=== PATIENT | male | born 1940 | race Caucasian/White ===

== ENCOUNTER 2023-01-26 17:46 | Observation (INO) | payer OTHER, SELFPAY ==
[2023-01-26] VITALS (15 sets, daily range): BP systolic 136–189; BP diastolic 62–83; PULSE 60–66; RESP 14–26; TEMP 36.7; O2SAT 92–96; BMI 27.6
--- NOTE | 2023-01-26 17:59 | DI.RAD.S_ITS ---
PROCEDURE: XR CHEST 1V INDICATIONS: Shortness of breath TECHNIQUE: One view of the chest was acquired. COMPARISON: None. FINDINGS: Surgical changes and devices: Left chest wall pacemaker with intravenous leads. Lungs and pleura: Lungs are clear. No pleural effusions or pneumothorax. Mediastinum: Mediastinal contours appear normal. Heart size is normal. Bones and chest wall: No suspicious bony lesions. Overlying soft tissues appear unremarkable. IMPRESSION: Portable chest within normal limits for age. Dictated by: Gwyn Price M.D. on 01/26/2023 at 18:43 Approved by: Gwyn Price M.D. on 01/26/2023 at 18:44
[2023-01-26 18:24] LABS: Add Manual Diff / Slide Review NO; Basophils Absolute Auto 100 /uL (0-100); Basophils Percent Auto 1.1 % (0-2); Eosinophils Absolute Auto 100 /uL (0-450); Eosinophils Percent Auto 2.1 % (2-4); Hematocrit 42.9 % (41-53); Hemoglobin 14.8 g/dL (13.5-17.5); Lymphocytes Absolute Auto 800 /uL (1100-4500); Lymphocytes Percent Auto 13.5 % (25-40); Mean Corpuscular HGB Conc 34.4 % (30-36); Mean Corpuscular Hemoglobin 30.9 PG (26-34); Mean Corpuscular Volume 89.8 fL (80-100); Monocytes Absolute Auto 500 /uL (0-900); Monocytes Percent Auto 8.1 % (3-14); Neutrophils Absolute Auto 4300 /uL (1500-7000); Neutrophils Percent Auto 75.2 % (50-75); Platelet Count 155 X10^3/uL (150-400); Red Blood Cell Count 4.78 X10^6/uL (4.5-5.9); Red Cell Distribution Width 13.7 % (11.6-14.8); White Blood Cell Count 5.8 X10^3/uL (4.5-11.0)
--- NOTE | 2023-01-26 18:27 | ED.SOB ---
HPI - SOB/Dyspnea General Chief Complaint: Shortness of Breath/Dyspnea Stated Complaint: SOB, Dyspnea Time Seen by Provider: 01/26/23 18:17 Source: patient and family Mode of arrival: Ambulatory History of Present Illness HPI Narrative: Patient is a 82-year-old male history of atrial fibrillation with pacemaker not on anticoagulation but does take aspirin presenting today with increasing shortness of breath over last 3 days. He reports that 5 days ago they put their dogs down but he is noticed significant increase shortness of breath with exertion. He is no problems sleeping at night. He feels like his legs might be a little bit more swollen than normal. No history of congestive heart failure. He is not having any chest pain. He reports more shortness of breath when walking up hills. No abdominal pain nausea or vomiting. He has a dry nonproductive cough. Not fever or chills. Related Data Allergies Allergy/AdvReac Type Severity Reaction Status Date / Time vaccine adjuvant system, Allergy Swelling Verified 01/26/23 17:52 AS01B liposomal of [From Shingrix (PF)] extremity varicella-zoster virus Allergy Swelling Verified 01/26/23 17:52 glycoprotein E, recombinant of [From Shingrix (PF)] extremity Sulfa (Sulfonamide AdvReac Hives Verified 01/26/23 17:52 Antibiotics) Review of Systems Review of Systems ROS Unobtainable: All systems reviewed & are unremarkable except as noted in HPI and below Patient History Social History household members: spouse Smoking Status: Former smoker alcohol intake: current Smoking Status: Never smoker alcohol intake frequency: a few times a month Substance Use Type: does not use Exam Initial Vital Signs Initial Vital Signs: Vital Signs Temperature 98.0 F 01/26/23 17:52 Pulse Rate 60 01/26/23 17:52 Respiratory Rate 16 01/26/23 17:52 Blood Pressure 182/80 H 01/26/23 17:52 Pulse Oximetry 96 01/26/23 17:52 Oxygen Delivery Method Room Air 01/26/23 17:52 GENERAL: Alert pleasant well-appearing 82-year-old male and in no acute distress. HEENT: Head atraumatic,EOMI, pupils reactive, face symmetric, moist mucous membranes CARDIOVASCULAR: Regular rate and rhythm without murmurs, rubs or gallops. RESPIRATORY: Breath sounds equal bilaterally, no wheezes rales or rhonchi. No conversational dyspnea no rales ABDOMEN: Soft, nontender. Normoactive bowel sounds all 4 quadrants. No guarding or rebound. EXTREMITIES: Normal range of motion, no clubbing. +1 pitting edema bilaterally reports left leg has chronically been more swollen than the right after an accident. Neurovascularly intact NEUROLOGICAL: Alert and oriented x4.Normal gait and speech. SKIN: Warm, dry, no laceration, no petechiae, no rashes or lesions. Course Orders Ordered: ED Orders 01/26/23 17:59 XR chest 1V Stat EKG-12 Lead Stat Measure peak expiratory flow ONCE RT Consult Eval and Treat NOW 01/26/23 18:22 Complete Blood Count AUTO DIFF Stat Comprehensive Metabolic Panel Stat D Dimer Stat Lactate (Lactic Acid) Stat NT-proBNP (BNP-Adult 18+) Stat Prothrombin Time INR Stat Troponin I Stat 01/26/23 20:10 CT angio chest PE protocol Stat Acetaminophen (Acetaminophen 325 Mg Tablet) 650 mg PO Q6H [facility] Last Admin: 01/26/23 23:42 Dose: Not Given Documented By: HNCristofer Hydrocodone Bitart/Acetaminophen (Hydrocodone/Acet 5/325 Tablet) 1 tab PO Q4H PRN PRN Reason: Pain, Moderate (4-6) Al Hydrox/Mg Hydrox/Simethicone (Mag Hydrox/Alum/Simeth 30 Ml Udc) 30 ml PO Q6HR PRN PRN Reason: Dyspepsia Apixaban (Apixaban 5 Mg Tablet) 10 mg PO BID [facility] Stop: 02/02/23 21:01 Calcium Carbonate (Calcium Carbonate 500 Mg Tab) 1,000 mg PO Q4HR PRN PRN Reason: Dyspepsia Morphine Sulfate (Morphine 4 Mg/Ml Inj) 3 mg IV Q4HR PRN PRN Reason: Pain, Severe (7-10) Naloxone HCl (Naloxone 0.4 Mg/Ml Vial) 0.2 mg IV Q2MIN PRN PRN Reason: Opiate Reversal Ondansetron HCl (Ondansetron 4 Mg/2 Ml Inj) 4 mg IV Q6HR [facility] Last Admin: 01/26/23 23:43 Dose: Not Given Documented By: HNG Sennosides (Sennosides 8.6 Mg Tablet) 17.2 mg PO BEDTIME YOLANDA Discontinued Medications Apixaban (Apixaban 5 Mg Tablet) 10 mg PO NOW ONE Stop: 01/26/23 21:06 Last Admin: 01/26/23 21:16 Dose: 10 mg Documented By: HNG Vital Signs Vital signs: Vital Signs - 8 hr 01/26/23 17:52 01/26/23 18:04 01/26/23 18:04 Temperature 98.0 F Pulse Rate 60 60 Respiratory Rate 16 Blood Pressure 182/80 H 189/83 H Pulse Oximetry 96 95 Oxygen Delivery Method Room Air 01/26/23 18:30 01/26/23 18:31 01/26/23 18:31 Temperature Pulse Rate 60 60 Respiratory Rate 26 H Blood Pressure 147/66 H Pulse Oximetry 94 94 Oxygen Delivery Method Room Air 01/26/23 19:00 01/26/23 19:00 01/26/23 19:30 Temperature Pulse Rate 60 60 Respiratory Rate 19 24 Blood Pressure 155/67 H Pulse Oximetry 93 92 Oxygen Delivery Method Room Air 01/26/23 19:31 01/26/23 19:31 01/26/23 20:00 Temperature Pulse Rate 60 60 Respiratory Rate 14 Blood Pressure 146/66 H Pulse Oximetry 93 94 Oxygen Delivery Method 01/26/23 20:00 01/26/23 20:33 01/26/23 20:46 Temperature Pulse Rate 66 60 Respiratory Rate Blood Pressure 137/68 Pulse Oximetry 93 93 Oxygen Delivery Method Room Air Room Air 01/26/23 20:46 01/26/23 21:00 01/26/23 21:00 Temperature Pulse Rate 60 Respiratory Rate Blood Pressure 138/64 136/62 Pulse Oximetry 93 Oxygen Delivery Method Room Air MDM - SOB/Dyspnea Lab Data 01/26/23 18:22 01/26/23 18:22 Labs: Lab Results 01/26/23 Range/Units 18:22 WBC 5.8 (4.5-11.0) X10^3/uL RBC 4.78 (4.5-5.9) X10^6/uL Hgb 14.8 (13.5-17.5) g/dL Hct 42.9 (41-53) % MCV 89.8 (80-100) fL MCH 30.9 (26-34) PG MCHC 34.4 (30-36) % RDW 13.7 (11.6-14.8) % Plt Count 155 (150-400) X10^3/uL Neut % (Auto) 75.2 H (50-75) % Lymph % (Auto) 13.5 L (25-40) % Sebastian % (Auto) 8.1 (3-14) % Eos % (Auto) 2.1 (2-4) % Baso % (Auto) 1.1 (0-2) % Neut # (Auto) 4300 (7075-9218) /uL Lymph # (Auto) 800 L (1894-4793) /uL Sebastian # (Auto) 500 (0-900) /uL Eos # (Auto) 100 (0-450) /uL Baso # (Auto) 100 (0-100) /uL PT 12.9 H (10.1-12.7) SECONDS INR 1.1 (0.9-1.3) D-Dimer 12508 H (<500) ng/ml Sodium 139 (137-145) mmol/L Potassium 4.5 (3.4-5.1) mmol/L Chloride 104 (98-107) mmol/L Carbon Dioxide 27 (22-32) mmol/L BUN 25 H (9-20) mg/dL Creatinine 1.48 H (0.66-1.25) mg/dL Estimated GFR 48 L (>60) mL/min BUN/Creatinine Ratio 16.9 (6-22) Glucose 90 (80-110) mg/dL Lactate 1.1 (0.7-2.1) mmol/L Calcium 9.7 (8.4-10.2) mg/dL Total Bilirubin 0.7 (0.2-1.3) mg/dL AST 39 (17-59) IU/L ALT 26 (<50) IU/L Alkaline Phosphatase 63 (38-126) U/L Troponin I 0.020 (0.01-0.034) ng/mL NT-Pro-B Natriuret Pep 186 (<450) pg/mL Total Protein 7.4 (6.3-8.2) g/dL Albumin 4.1 (3.5-5.0) g/dL Globulin 3.3 (1.7-4.1) g/dL Albumin/Globulin Ratio 1.2 (1.0-2.8) Imaging Data Chest x-ray: Radiologist's Impression: PROCEDURE: XR CHEST 1V INDICATIONS: Shortness of breath TECHNIQUE: One view of the chest was acquired. COMPARISON: None. FINDINGS: Surgical changes and devices: Left chest wall pacemaker with intravenous leads. Lungs and pleura: Lungs are clear. No pleural effusions or pneumothorax. Mediastinum: Mediastinal contours appear normal. Heart size is normal. Bones and chest wall: No suspicious bony lesions. Overlying soft tissues appear unremarkable. IMPRESSION: Portable chest within normal limits for age. CT scan - chest: Radiologist's Impression: PROCEDURE: CT ANGIO CHEST PE PROTOCOL INDICATIONS: dimer very high and short of breath TECHNIQUE: After the administration of intravenous contrast, 2 mm thick sections acquired from the pulmonary apices to the posterior costophrenic angles. 3-dimensional maximum intensity projection (MIP) coronal and sagittal reformats were then acquired through the thorax. For radiation dose reduction, the following was used: automated exposure control, adjustment of mA and/or kV according to patient size. COMPARISON: [facility], , XR CHEST 1V, 01/26/2023, 18:08. FINDINGS: Image quality: Excellent. Pulmonary arteries: Pulmonary arteries are prominent in size. Intraluminal filling defects are noted within segmental and subsegmental branches of bilateral upper and lower lobe as well as right middle lobe branches of pulmonary arteries. Lungs and pleura: Bibasilar scarring/atelectasis is seen. No acute airspace opacity. No pleural effusions or pneumothorax. Central and peripheral airways are patent. Mediastinum: Heart size is enlarged, without pericardial effusion. Prominent size of right atrium and right ventricle is seen with leftward bowing of the interventricular septum suggestive of right heart strain. No mediastinal or hilar adenopathy. Thoracic aorta is normal in caliber and enhancement. Esophagus is normal in caliber, with a small hiatal hernia. Bones and chest wall: No suspicious bony lesions. Ribs and thoracic spine appear intact throughout. Thyroid gland is within normal limits. No axillary or supraclavicular adenopathy. Abdomen: Visualized upper abdominal solid organs appear normal in the early arterial phase of enhancement. Well-circumscribed hypodensities are noted scattered in visualized hepatic lobe measures up to 3.3 x 4.5 cm in size and 6 Hounsfield unit in density likely represent hepatic cysts. IMPRESSION: 1. Extensive bilateral pulmonary emboli as described above. 2. Suggestion of right heart strain. Prominent size of main pulmonary artery which can be seen associated with pulmonary vascular hypertension. 3. No mediastinal or hilar lymphadenopathy. Small hiatal hernia. 4. Bibasilar scarring/atelectasis. No pleural effusion or pneumothorax. Airway is patent. Findings were reported to ER clinician at the time of the dictation. Dictated by: Priyank Welch M.D. on 01/26/2023 at 20:47 Approved by: Priyank Welch M.D. on 01/26/2023 at 20:57 ECG Data Interpretation: Paced rhythm rate 60 IL interval 292 QRS 104 QTC 432 MDM Narrative Medical decision making narrative: Patient 82-year-old male very well appearing presents today with increasing shortness of breath over the last 3 days. He does report that he had some shortness of breath 4 days ago drove in a car the following day and breathing got worse after that. He is not hypoxic or hypotensive. He is not tachycardic has a pacemaker. X-ray is negative he does not have any sort of conversational dyspnea no evidence of infection or congestive heart failure BNP is also detectable. D-dimer was added and is greater than 10,000. CT angio confirms bilateral extensive pulmonary emboli with right heart strain. Personally have reviewed the CT and easily see the clot burden. Without hypotension or hypoxia does not qualify for thrombolytics or echoes. He overall appears well. However due to right heart strain and extensive clot burden I think reasonable to put in observation. He is given a 1st dose of Eliquis here in the ED. Discussed case with Dr. Be who agrees with observational status. Unclear cause of autism. He seems like a very active gentleman he is definitely not sedentary. He does have atrial fibrillation he is got a pacemaker he is only taking aspirin. He did not like or want to take anticoagulation because he bruises very easily. Discharge Plan Departure Patient Disposition: Admitted as Observation Clinical Impression: Pulmonary embolism with acute cor pulmonale Qualifiers: Pulmonary embolism type: unspecified Chronicity: acute Qualified Code(s): I26.09 - Other pulmonary embolism with acute cor pulmonale Admit Date/Time: 01/26/23 21:56 Admit Provider: Luke White
[2023-01-26 18:36] LABS: INR 1.1 (0.9-1.3); Prothrombin Time 12.9 SECONDS (10.1-12.7)
[2023-01-26 18:43] LABS: Lactate (Lactic Acid) 1.1 mmol/L (0.7-2.1)
[2023-01-26 18:44] LABS: Alanine Aminotransferase 26 IU/L (<50); Albumin 4.1 g/dL (3.5-5.0); Albumin Globulin Ratio 1.2 (1.0-2.8); Alkaline Phosphatase 63 U/L (38-126); Aspartate Aminotransferase 39 IU/L (17-59); BUN Creatinine Ratio 16.9 (6-22); Bilirubin Total 0.7 mg/dL (0.2-1.3); Blood Urea Nitrogen 25 mg/dL (9-20); Calcium 9.7 mg/dL (8.4-10.2); Carbon Dioxide 27 mmol/L (22-32); Chloride 104 mmol/L (98-107); Estimated Glomerular Filt Rate 48 mL/min (>60); Globulin 3.3 g/dL (1.7-4.1); Glucose 90 mg/dL (80-110); HEMOLYSIS < 15 (0-50); Potassium 4.5 mmol/L (3.4-5.1); Sodium 139 mmol/L (137-145); Total Protein 7.4 g/dL (6.3-8.2)
--- NOTE | 2023-01-26 18:55 | PC.NURSE ---
Pt has afib and a pacemaker, takes Multaq and baby aspirin. Is not on a blood thinner due to wanting to live an active lifestyle and avoid bleeding complications. Pt denies chest pain, pain upon inspiration. He has bilateral leg swelling which he states is not worse than normal. Pt notices increased work of breathing and shortness of breath when walking uphill.
[2023-01-26 18:56] LABS: NT-proBNP (BNP-Adult 18+) 186 pg/mL (<450)
[2023-01-26 19:47] LABS: D Dimer 10239 ng/ml (<500)
--- NOTE | 2023-01-26 20:10 | DI.CT.S_ITS ---
PROCEDURE: CT ANGIO CHEST PE PROTOCOL INDICATIONS: dimer very high and short of breath TECHNIQUE: After the administration of intravenous contrast, 2 mm thick sections acquired from the pulmonary apices to the posterior costophrenic angles. 3-dimensional maximum intensity projection (MIP) coronal and sagittal reformats were then acquired through the thorax. For radiation dose reduction, the following was used: automated exposure control, adjustment of mA and/or kV according to patient size. COMPARISON: [facility], CR, XR CHEST 1V, 01/26/2023, 18:08. FINDINGS: Image quality: Excellent. Pulmonary arteries: Pulmonary arteries are prominent in size. Intraluminal filling defects are noted within segmental and subsegmental branches of bilateral upper and lower lobe as well as right middle lobe branches of pulmonary arteries. Lungs and pleura: Bibasilar scarring/atelectasis is seen. No acute airspace opacity. No pleural effusions or pneumothorax. Central and peripheral airways are patent. Mediastinum: Heart size is enlarged, without pericardial effusion. Prominent size of right atrium and right ventricle is seen with leftward bowing of the interventricular septum suggestive of right heart strain. No mediastinal or hilar adenopathy. Thoracic aorta is normal in caliber and enhancement. Esophagus is normal in caliber, with a small hiatal hernia. Bones and chest wall: No suspicious bony lesions. Ribs and thoracic spine appear intact throughout. Thyroid gland is within normal limits. No axillary or supraclavicular adenopathy. Abdomen: Visualized upper abdominal solid organs appear normal in the early arterial phase of enhancement. Well-circumscribed hypodensities are noted scattered in visualized hepatic lobe measures up to 3.3 x 4.5 cm in size and 6 Hounsfield unit in density likely represent hepatic cysts. IMPRESSION: 1. Extensive bilateral pulmonary emboli as described above. 2. Suggestion of right heart strain. Prominent size of main pulmonary artery which can be seen associated with pulmonary vascular hypertension. 3. No mediastinal or hilar lymphadenopathy. Small hiatal hernia. 4. Bibasilar scarring/atelectasis. No pleural effusion or pneumothorax. Airway is patent. Findings were reported to ER clinician at the time of the dictation. Dictated by: Priyank Welch M.D. on 01/26/2023 at 20:47 Approved by: Priyank Welch M.D. on 01/26/2023 at 20:57
[2023-01-26] MEDS: APIXABAN 5 MG TABLET 10 MG PO (21:16)
--- NOTE | 2023-01-26 22:04 | DI.ECHO.S_ITS ---
[facility]---------+ [facility] +---------+ : : [address] : [place] : : : : [id number] : : : : Phone: [phone] Echocardiogram Report + + :Name: JOSELINE WINSTON Study Date: 01/27/2023 Height: 69 in : :[facility] ReadingLocation: Weight: 187 lb : : Gender: Male BSA: 2.0 m2 : :: 1940 Age: 82 yrs BP: 155/72 mmHg: :Reason For Study: PULMONARY EMBOLISM WITH HEART STRAIN : :Ordering Physician: PETE, : :TEOFILO Tirado MD Performed By: Nuzhat Salinas : :Referring: TEOFILO FREEMAN DMD : + + Interpretation Summary Normal left ventricle size with ejection fraction 55-60%. Borderline dilated right ventricle with normal right ventricular systolic function. Mild tricuspid regurgitation. The right ventricular systolic pressure is estimated to be at least 43 mmHg based on an estimated right atrial pressure of 3 mm Hg. Procedure: A two-dimensional transthoracic echocardiogram with color flow and Doppler was performed. The study quality was technically adequate. There is no prior echocardiogram noted for this patient. The heart rate ranged between 60 bpm during the study. Left Ventricle: The left ventricle is normal in size and wall thickness. The ejection fraction is estimated to be 55-60%. There are no focal wall motion abnormalities. Right Ventricle: The right ventricle is borderline dilated. The right ventricular systolic function is normal. Atria: The left atrial size is normal. Right atrial size is normal. There is no Doppler evidence for an interatrial shunt. Mitral Valve: The mitral valve is normal in structure and function. There is trace mitral regurgitation. Aortic Valve: The aortic valve is trileaflet. The aortic valve opens well. There is no aortic valve stenosis. No aortic regurgitation is present. Tricuspid Valve: The tricuspid valve is normal in structure and function. There is mild tricuspid regurgitation. The right ventricular systolic pressure is estimated to be at least 43 mmHg based on an estimated right atrial pressure of 3 mm Hg. Pulmonic Valve: The pulmonic valve is not well seen, but is grossly normal. There is mild pulmonic regurgitation. Great Vessels: The aortic root is normal size. The dimensions of the ascending aorta are normal. The IVC is of normal diameter and collapses greater than 50% with a sniff. This suggests a low right atrial pressure of 3 mm Hg. Pericardium/ Pleura There is no pericardial effusion. There is no pleural effusion. MMode/2D Measurements & Calculations LVIDd: 4.7 cm LVOT diam: 2.2 cm LVIDs: 3.2 cm Ao root diam: 3.8 cm FS: 30.6 % asc Aorta Diam: 3.8 cm IVSd: 0.83 cm Ao Arch Diam (Prox Trans): 2.7 cm LVPWd: 0.89 cm LV condon. diameter/BSA (cm/m^2): 2.3 LV sys. diameter/BSA (cm/m^2): 1.6 LA A2 area: 18.6 cm2 RA long axis: 5.7 cm LA A4 area: 19.1 cm2 RA area: 16.1 cm2 LA length (vol): 5.4 cm RA vol: 38.8 ml LA vol: 55.9 ml RA : 19.4 ml/m2 LA vol index: 27.9 ml/m2 IVC diam: 1.0 cm RVD1 (basal): 3.3 cm RVD2 (mid): 3.1 cm TAPSE: 2.0 cm Doppler Measurements & Calculations Ao V2 max: 102.2 cm/sec LVOT Max Donnie: 87.4 cm/sec Ao V2 mean: 72.0 cm/sec LV V1 max P.1 mmHg Ao max P.2 mmHg LV V1 VTI: 21.9 cm Ao mean P.3 mmHg MEL(I,D): 3.3 cm2 Ao V2 VTI: 25.8 cm MEL(V,D): 3.3 cm2 sev ratio: 0.85 MEL indexed to BSA (cm^2/m^2): 1.7 MV E max donnie: 73.3 cm/sec TR max donnie: 316.8 cm/sec MV A max donnie: 78.1 cm/sec TR max P.1 mmHg MV E/A: 0.94 PA V2 max: 94.2 cm/sec Med Peak E' Donnie: 8.3 cm/sec PA V2 mean: 58.4 cm/sec E/E' med: 8.8 PA mean P.6 mmHg Lat Peak E' Donnie: 10.6 cm/sec PA pr(Accel): 12.2 mmHg E/E' lat: 6.9 E/e' average: 7.9 MV dec time: 0.19 sec SV(LVOT): 85.5 ml Electronically signed by: Kelsey Graham on Reading Physician:01/27/2023 10:49 AM
--- NOTE | 2023-01-26 22:59 | PM.HP.1 ---
History of Present Illness History of Present Illness Date Patient Seen: 01/26/23 Time Patient Seen: 22:59 Chief complaint: SOB, Dyspnea Narrative: The pt is a very physically active 82 gentleman who started developing SOB and HOROWITZ about 4 days ago which noticed more when working out at the gym. The syptoms have been stable until today when he noticed a sudden worsening of the dyspnea. There has been no CP, chest pressure, back pain, recent illness, change in meds or weight. He does have a hx of chronic atrial fibrillation but is not anticoagulated. 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 He is currently on RA, no distress and is very eager to be discharged as soon as possible. [facility] Social History household members: spouse Smoking Status: Former smoker alcohol intake: current Meds Home Medications and Allergies Allergies Allergy/AdvReac Type Severity Reaction Status Date / Time vaccine adjuvant system, Allergy Swelling Verified 01/26/23 17:52 AS01B liposomal of [From Shingrix (PF)] extremity varicella-zoster virus Allergy Swelling Verified 01/26/23 17:52 glycoprotein E, recombinant of [From Shingrix (PF)] extremity Sulfa (Sulfonamide AdvReac Hives Verified 01/26/23 17:52 Antibiotics) Exam Vital Signs (past 8 hours): - 01/26/23 17:52 01/26/23 18:04 01/26/23 18:04 Temperature 98.0 F Pulse Rate 60 60 Respiratory Rate 16 Blood Pressure 182/80 H 189/83 H Pulse Oximetry 96 95 Oxygen Delivery Method Room Air 01/26/23 18:30 01/26/23 18:31 01/26/23 18:31 Temperature Pulse Rate 60 60 Respiratory Rate 26 H Blood Pressure 147/66 H Pulse Oximetry 94 94 Oxygen Delivery Method Room Air 01/26/23 19:00 01/26/23 19:00 01/26/23 19:30 Temperature Pulse Rate 60 60 Respiratory Rate 19 24 Blood Pressure 155/67 H Pulse Oximetry 93 92 Oxygen Delivery Method Room Air 01/26/23 19:31 01/26/23 19:31 01/26/23 20:00 Temperature Pulse Rate 60 60 Respiratory Rate 14 Blood Pressure 146/66 H Pulse Oximetry 93 94 Oxygen Delivery Method 01/26/23 20:00 01/26/23 20:33 01/26/23 20:46 Temperature Pulse Rate 66 60 Respiratory Rate Blood Pressure 137/68 Pulse Oximetry 93 93 Oxygen Delivery Method Room Air Room Air 01/26/23 20:46 01/26/23 21:00 01/26/23 21:00 Temperature Pulse Rate 60 Respiratory Rate Blood Pressure 138/64 136/62 Pulse Oximetry 93 Oxygen Delivery Method Room Air Oxygen Delivery Method Room Air Const General: healthy appearing and comfortable Resp Auscultation: clear to auscultation bilaterally Cardio Rate: regular rate Rhythm: regular rhythm GI Palpation: soft Auscultation: normal bowel sounds Objective Labs 01/26/23 18:22 01/26/23 18:22 Labs: Laboratory Results - last 24 hr 01/26/23 18:22 WBC 5.8 RBC 4.78 Hgb 14.8 Hct 42.9 MCV 89.8 MCH 30.9 MCHC 34.4 RDW 13.7 Plt Count 155 Neut % (Auto) 75.2 H Lymph % (Auto) 13.5 L [place] % (Auto) 8.1 Eos % (Auto) 2.1 Baso % (Auto) 1.1 Neut # (Auto) 4300 Lymph # (Auto) 800 L [place] # (Auto) 500 Eos # (Auto) 100 Baso # (Auto) 100 PT 12.9 H INR 1.1 D-Dimer 67761 H Sodium 139 Potassium 4.5 Chloride 104 Carbon Dioxide 27 BUN 25 H Creatinine 1.48 H Estimated GFR 48 L BUN/Creatinine Ratio 16.9 Glucose 90 Lactate 1.1 Calcium 9.7 Total Bilirubin 0.7 AST 39 ALT 26 Alkaline Phosphatase 63 Troponin I 0.020 NT-Pro-B Natriuret Pep 186 Total Protein 7.4 Albumin 4.1 Globulin 3.3 Albumin/Globulin Ratio 1.2 Assessment & Plan Assessment and plan (1) Pulmonary embolism with acute cor pulmonale: Qualifiers: Pulmonary embolism type: unspecified Chronicity: acute Qualified Code(s): I26.09 - Other pulmonary embolism with acute cor pulmonale Status: Acute (2) Persistent atrial fibrillation: Status: Acute Assessment & Plan narrative: Will admit the pt to the medicine service. I spoke with the ER provider regarding this pt and agree with admission, will monitor on tele, start on Eliquis 10 mg BID, supportive care, pain meds PO & IV prn, continue with home meds, CT chest reviewed, there is heart strain mentioned in addition to the bilat PE, will get an echo in the AM. Quality VTE Deep Vein Thrombosis/Pulmonary Embolism Present on Admission: Yes
--- NOTE | 2023-01-27 01:47 | PC.ADMIT ---
[email or web address] Admission Note: Patient boarding in the ED, this RN completed admission assessment with patient prior to MD assessing. Patient informed of unit policies and procedures and will be re-oriented when physically on the unit. Patient medication list partially complete- multaq 400 mg BID & asa 81 mg PO daily, as well as unknown doses of vitamin C, magnesium, calcium, B12, fish oil, and a multivitamin. Only known doses were added to medication list. Discussed next steps of admission to patient, who was agreeable. Noc teledoc to see pt. The patient,Marcus Carrillo,82 y/o, was given written information regarding hospital policies, unit procedures and contact persons. Patient's smoking status: Former smoker. Vital Signs - 8 hr 01/26/23 17:52 01/26/23 18:04 01/26/23 18:04 Temperature 98.0 F Pulse Rate 60 60 Respiratory Rate 16 Blood Pressure 182/80 H 189/83 H Pulse Oximetry 96 95 Oxygen Delivery Method Room Air 01/26/23 18:30 01/26/23 18:31 01/26/23 18:31 Temperature Pulse Rate 60 60 Respiratory Rate 26 H Blood Pressure 147/66 H Pulse Oximetry 94 94 Oxygen Delivery Method Room Air 01/26/23 19:00 01/26/23 19:00 01/26/23 19:30 Temperature Pulse Rate 60 60 Respiratory Rate 19 24 Blood Pressure 155/67 H Pulse Oximetry 93 92 Oxygen Delivery Method Room Air 01/26/23 19:31 01/26/23 19:31 01/26/23 20:00 Temperature Pulse Rate 60 60 Respiratory Rate 14 Blood Pressure 146/66 H Pulse Oximetry 93 94 Oxygen Delivery Method 01/26/23 20:00 01/26/23 20:33 01/26/23 20:46 Temperature Pulse Rate 66 60 Respiratory Rate Blood Pressure 137/68 Pulse Oximetry 93 93 Oxygen Delivery Method Room Air Room Air 01/26/23 20:46 01/26/23 21:00 01/26/23 21:00 Temperature Pulse Rate 60 Respiratory Rate Blood Pressure 138/64 136/62 Pulse Oximetry 93 Oxygen Delivery Method Room Air 01/26/23 21:30 01/26/23 21:30 01/26/23 22:00 Temperature Pulse Rate 60 Respiratory Rate Blood Pressure 152/71 H 154/67 H Pulse Oximetry 92 Oxygen Delivery Method 01/26/23 22:00 01/26/23 22:30 01/26/23 22:30 Temperature Pulse Rate 60 60 Respiratory Rate 18 Blood Pressure 154/69 H Pulse Oximetry 92 93 Oxygen Delivery Method Room Air 01/26/23 23:00 01/26/23 23:00 Temperature Pulse Rate 60 Respiratory Rate Blood Pressure 149/70 H Pulse Oximetry 94 Oxygen Delivery Method Room Air
[2023-01-27 02:17] VITALS: BP 154/66; PULSE 60; RESP 18; TEMP 36.4; O2SAT 92
[2023-01-27 03:29] VITALS: BP 155/72; PULSE 60; RESP 16; O2SAT 94
[2023-01-27 05:35] LABS: Add Manual Diff / Slide Review NO; Basophils Absolute Auto 100 /uL (0-100); Eosinophils Absolute Auto 200 /uL (0-450); Eosinophils Percent Auto 2.9 % (2-4); Hemoglobin 13.3 g/dL (13.5-17.5); Lymphocytes Absolute Auto 700 /uL (1100-4500); Lymphocytes Percent Auto 13.2 % (25-40); Mean Corpuscular HGB Conc 34.1 % (30-36); Mean Corpuscular Hemoglobin 30.3 PG (26-34); Monocytes Absolute Auto 600 /uL (0-900); Neutrophils Absolute Auto 4000 /uL (1500-7000); Neutrophils Percent Auto 71.9 % (50-75); Platelet Count 132 X10^3/uL (150-400); Red Blood Cell Count 4.39 X10^6/uL (4.5-5.9); Red Cell Distribution Width 13.6 % (11.6-14.8); White Blood Cell Count 5.5 X10^3/uL (4.5-11.0)
[2023-01-27 05:57] LABS: Alanine Aminotransferase 22 IU/L (<50); Albumin 3.3 g/dL (3.5-5.0); Albumin Globulin Ratio 1.2 (1.0-2.8); Alkaline Phosphatase 57 U/L (38-126); Aspartate Aminotransferase 33 IU/L (17-59); BUN Creatinine Ratio 18.2 (6-22); Bilirubin Total 0.9 mg/dL (0.2-1.3); Blood Urea Nitrogen 25 mg/dL (9-20); Calcium 8.8 mg/dL (8.4-10.2); Carbon Dioxide 25 mmol/L (22-32); Chloride 107 mmol/L (98-107); Estimated Glomerular Filt Rate 52 mL/min (>60); Globulin 2.8 g/dL (1.7-4.1); Glucose 93 mg/dL (80-110); HEMOLYSIS < 15 (0-50); Potassium 4.2 mmol/L (3.4-5.1); Sodium 137 mmol/L (137-145); Total Protein 6.1 g/dL (6.3-8.2)
[2023-01-27 07:51] VITALS: BP 158/84; PULSE 60; RESP 18; O2SAT 95
[2023-01-27] MEDS: APIXABAN 5 MG TABLET 10 MG PO (08:04)
[2023-01-27] MEDS: DRONEDARONE 400 MG TABLET PO (08:22)
--- NOTE | 2023-01-27 08:56 | PC.NURSE ---
Pt ambulates independently and is a&ox4. No significant work of breathing or SOB during ambulation. skin and extremities pink, warm & dry & intact. spoke with dr muller and awaiting results of echo and plan for discharge today. HR 80, bp 158/84. denies pain, cp & n/v at this time.
--- NOTE | 2023-01-27 09:10 | PC.NURSE ---
see ed boarding assessment.
--- NOTE | 2023-01-27 11:19 | PM.DS.1 ---
History of Present Illness History of Present Illness Date Patient Seen: 01/27/23 Time Patient Seen: 11:19 Chief complaint: SOB, Dyspnea Narrative: The pt is a very physically active 82 gentleman who started developing SOB and HOROWITZ about 4 days ago which noticed more when working out at the gym. The syptoms have been stable until today when he noticed a sudden worsening of the dyspnea. There has been no CP, chest pressure, back pain, recent illness, change in meds or weight. He does have a hx of chronic atrial fibrillation but is not anticoagulated. He has had ablation and a pacemaker placed in 2017 and has seen a psychologist engineering as an outpt. He is currently on RA, no distress and is very eager to be discharged as soon as possible. Discharge Providers Provider Date of admission: 01/26/23 21:56 Discharge Date: 01/27/23 Primary care physician: Thanh Duarte MD Discharge provider: Joaquin Del Valle DO Summary Hospital Course Discharge Diagnosis: (1) large Pulmonary embolism (2) Persistent atrial fibrillation: Hospital Course: This is an 82 year old male who presented with shortness of breath. He had a CT scan that showed dilated RV and was admitted for possible right heart strain. his vitals were unremarkable and he was not hypoxic. Pulmonology was consulted. He was recommended for discharge home on oral anticoagulation with repeat TTE in 3-6 months. TTE was performed and did show some pulmonary HTN but no R heart failure, probably in setting of chronic afib. Given unprovoked PE, along with persistent atrial fibrilllation, lifelong anticoagulation is recommended at this time, but can be further discussed with his psychologist engineering as an outpatient. Time Spent with Patient Time spent: Greater than 30 minutes Exam Vital Signs (past 8 hours): - 01/27/23 03:29 01/27/23 07:51 01/27/23 07:51 Pulse Rate 60 60 Respiratory Rate 16 18 Blood Pressure 155/72 H 158/84 H Pulse Oximetry 94 95 Oxygen Delivery Method Room Air Oxygen Delivery Method Room Air Narrative Exam Narrative: General:? Patient is well developed and well nourished, in no distress at this time. HEENT:? Normocephalic, atraumatic, extraocular muscles intact, oral pharynx is clear and mucous membranes are moist. Neck: supple and symmetric, trachea is midline, no cervical adenopathy. Negative for JVD Chest:? Normal AP diameter and contour without kyphoscoliosis, no tachypnea, equal chest rise bilaterally. Lungs:? CTA b/l no wheezing rhonchi or rales. Cardio:?RRR no m/r/g. Abdomen: S NT ND. Musculoskeletal:? Muscle strength and tone are equal within normal limits, no deformity. Extremities: No edema or joint effusions. No cyanosis or clubbing. Skin:? Pale,? Warm to touch,dry and intact without rashes, ulcerations or petechiae.? Neuro:? Alert and orientated x3,? sensation to touch intact in all extremities, no gross deficits noted of cranial nerves. Psych:? Patient has a well-kept appearance, appropriate affect, mental status attitude thought context and judgment are appropriate for age. Objective Labs 01/27/23 05:28 01/27/23 05:28 Labs: Laboratory Results - last 24 hr 01/26/23 01/27/23 18:22 05:28 WBC 5.8 5.5 RBC 4.78 4.39 L Hgb 14.8 13.3 L Hct 42.9 39.0 L MCV 89.8 89.0 MCH 30.9 30.3 MCHC 34.4 34.1 RDW 13.7 13.6 Plt Count 155 132 L Neut % (Auto) 75.2 H 71.9 Lymph % (Auto) 13.5 L 13.2 L [place] % (Auto) 8.1 11.0 Eos % (Auto) 2.1 2.9 Baso % (Auto) 1.1 1.0 Neut # (Auto) 4300 4000 Lymph # (Auto) 800 L 700 L [place] # (Auto) 500 600 Eos # (Auto) 100 200 Baso # (Auto) 100 100 PT 12.9 H INR 1.1 D-Dimer 80848 H Sodium 139 137 Potassium 4.5 4.2 Chloride 104 107 Carbon Dioxide 27 25 BUN 25 H 25 H Creatinine 1.48 H 1.37 H Estimated GFR 48 L 52 L BUN/Creatinine Ratio 16.9 18.2 Glucose 90 93 Lactate 1.1 Calcium 9.7 8.8 Total Bilirubin 0.7 0.9 AST 39 33 ALT 26 22 Alkaline Phosphatase 63 57 Troponin I 0.020 NT-Pro-B Natriuret Pep 186 Total Protein 7.4 6.1 L Albumin 4.1 3.3 L Globulin 3.3 2.8 Albumin/Globulin Ratio 1.2 1.2 PFSH Social History household members: spouse Smoking Status: Former smoker alcohol intake: current Discharge Plan Discharge Plan Patient Disposition: Home Provider Discharge Comment: You were admitted to the hospital for further monitoring after blood clots were found in your lungs. Please follow up with PCP as soon as possible to review PE and to continue anticoagulation. Repeat echocardiogram (US of your heart) also recommended as an outpatient in 3-6 months, this can be with PCP, psychologist engineering, or pulmonary doctor. Discharge orders & Medications Prescriptions: New apixaban 5 mg (74 tabs) tablets,dose pack See Rx Instructions .ROUTE .COMPLEX Qty: 74 0RF Rx Instructions: 10 mg BID for 7 days, followed by 5 mg BID for 23 days Continued aspirin 81 mg Tablet,Chewable 81 mg PO DAILY Multaq 400 mg Tablet 400 mg PO BID Rx Instructions: must administer with a meal/food Follow up/Referrals: Thanh Duarte MD [Primary Care Provider] - Diet/Activity/Treatments Diet: Diet as Tolerated and Regular Activity: As tolerated, no restrictions Visit Report/Discharge Packet Stand Alone Forms: Patient Portal/API, Stroke Signs & Symptoms Discharge Data Primary Care Provider: Thanh Duarte Attending Provider: Luke White Admit Date/Time: 01/26/23 21:56 Quality VTE Deep Vein Thrombosis/Pulmonary Embolism Present on Admission: Yes
[2023-01-27 11:33] VITALS: BP 171/83; PULSE 74; RESP 18; O2SAT 96
--- NOTE | 2023-01-27 12:06 | PM.CN ---
History of Present Illness Consult details Date Patient Seen: 01/27/23 Time Patient Seen: 12:06 Chief complaint: SOB, Dyspnea Reason for consult: PE with right heart strain Requesting provider: Joaquin Del Valle Narrative: Mr. 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 He states that on 01/25 and 01/26 with exercise including treadmill and 50 pushups and he does regularly you began feel sweaty and some chest tightness which was unusual for him. Given that it was a 2nd workup where he experienced symptoms he presented to the ED. he was found to have elevated D-dimer and ultimately segmental and subsegmental right upper lobe, right lower lobe and right middle lobe PE with a dilated RV and bowing of the intraventricular septum. His troponin an NT proBNP were normal. He was not hypoxic and actually on the hypertensive side. He was started on apixaban loading dose last night. 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 An echocardiogram done later today showed borderline dilated RV with normal RV function, RVSP of 43 mm Hg. He had normal-sized atria, normal LVEF. His last echo was in 2017 with no evidence of cardiomyopathy. I have reviewed all of his cardiology notes which appear to be device interrogations and there is no actual documentation regarding anticoagulation or the above. He states that he would no preceding surgery, prolonged travel, no known malignancy. His lab work was otherwise unremarkable. He was not tachycardic. Meds Home Medications and Allergies Home Medications Medication Instructions Recorded Confirmed Type apixaban 5 mg (74 tabs) tablets in See Rx Instructions PO .COMPLEX 01/27/23 Rx a dose pack #74 ea aspirin 81 mg chewable tablet 81 mg PO DAILY 01/27/23 01/27/23 History dronedarone 400 mg tablet (Multaq) 400 mg PO BID 01/27/23 01/27/23 History Allergies Allergy/AdvReac Type Severity Reaction Status Date / Time vaccine adjuvant system, Allergy Swelling Verified 01/26/23 17:52 AS01B liposomal of [From Shingrix (PF)] extremity varicella-zoster virus Allergy Swelling Verified 01/26/23 17:52 glycoprotein E, recombinant of [From Shingrix (PF)] extremity Sulfa (Sulfonamide AdvReac Hives Verified 01/26/23 17:52 Antibiotics) Exam Vital Signs (past 8 hours): - 01/27/23 07:51 01/27/23 07:51 01/27/23 11:33 Pulse Rate 60 74 Respiratory Rate 18 18 Blood Pressure 158/84 H 171/83 H Pulse Oximetry 95 96 Oxygen Delivery Method Room Air Oxygen Delivery Method Room Air Narrative Exam Narrative: Well-appearing elderly male appearing younger than stated age, fit appearing, sitting up in hospital bed in no distress HENMT Head: normal to inspection Resp Effort & Inspection: normal respiratory effort and able to speak in complete sentences Auscultation: no rales, no rhonchi and no wheezes Skin General: no rashes or lesions noted Neuro General: patient alert, patient awake and patient oriented x3 Extrem Other: No edema Psych Appearance: grossly normal Objective Imaging CT scan - chest: My impression: I reviewed CT angiogram of chest showing segmental and subsegmental right-sided PEs with RV dilation but no reflux of contrast into the IVC, no other parenchymal lung disease Echo: My impression: I reviewed echo from 01/27/2023 showing dilated RV, normal RV function, PA pressures of 40 mm Hg, normal-sized atria, normal LVEF Labs 01/27/23 05:28 01/27/23 05:28 Labs: Laboratory Results - last 24 hr 01/26/23 01/27/23 18:22 05:28 WBC 5.8 5.5 RBC 4.78 4.39 L Hgb 14.8 13.3 L Hct 42.9 39.0 L MCV 89.8 89.0 MCH 30.9 30.3 MCHC 34.4 34.1 RDW 13.7 13.6 Plt Count 155 132 L Neut % (Auto) 75.2 H 71.9 Lymph % (Auto) 13.5 L 13.2 L [place] % (Auto) 8.1 11.0 Eos % (Auto) 2.1 2.9 Baso % (Auto) 1.1 1.0 Neut # (Auto) 4300 4000 Lymph # (Auto) 800 L 700 L [place] # (Auto) 500 600 Eos # (Auto) 100 200 Baso # (Auto) 100 100 PT 12.9 H INR 1.1 D-Dimer 80890 H Sodium 139 137 Potassium 4.5 4.2 Chloride 104 107 Carbon Dioxide 27 25 BUN 25 H 25 H Creatinine 1.48 H 1.37 H Estimated GFR 48 L 52 L BUN/Creatinine Ratio 16.9 18.2 Glucose 90 93 Lactate 1.1 Calcium 9.7 8.8 Total Bilirubin 0.7 0.9 AST 39 33 ALT 26 22 Alkaline Phosphatase 63 57 Troponin I 0.020 NT-Pro-B Natriuret Pep 186 Total Protein 7.4 6.1 L Albumin 4.1 3.3 L Globulin 3.3 2.8 Albumin/Globulin Ratio 1.2 1.2 I reviewed labs showing an elevated D-dimer, normal NT proBNP and troponin [facility] Social History household members: spouse Tobacco & Substance Use Smoking Status: Former smoker alcohol intake: current Assessment & Plan Assessment and plan (1) Pulmonary embolism with acute cor pulmonale: Qualifiers: Chronicity: acute Pulmonary embolism type: unspecified Qualified Code(s): I26.09 - Other pulmonary embolism with acute cor pulmonale Status: Acute Plan: Patient has a pulmonary embolism that is probably low risk. His CT did show dilated RV but this is likely chronic given the lack of elevated biomarkers troponin and NT proBNP which a otherwise revealed any strain. He also is not tachycardic, not hypoxic, and normotensive corroborating this. He should be discharged on anticoagulation and given that this was unprovoked consideration for lifelong particularly given his concurrent comorbid condition of atrial fibrillation. Given his mild pulmonary hypertension, he should undergo repeat echocardiogram in 3-6 months which we will plan to do in Pulmonary Clinic to evaluate for resolution of the pulmonary hypertension. If not then the differentials include pulmonary hypertension secondary to PE which would be unlikely though possible versus diastolic dysfunction from atrial fibrillation which will be more likely especially given dilated RV and lack of right heart strain consistent with some more chronic disease process. Patient in agreement the plan. He will continue anticoagulation. Follow up in Pulmonary Clinic in 3-6 months for repeat echo though he understands if he would like to do this with his PCP or cloth mercerizing supervisor this is reasonable as well. 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 His CHADS2 Vasc score is 2 and so anticoagulation is recommended. Now that he has a PE that is unprovoked they are too good reasons to be on anticoagulation he is agreeable. Rest of management per Cardiology. Time Spent With Patient Time with patient: 70 minutes or more, with 50% spent counseling/coordinating
== END 2023-01-27 12:00 | disposition home or self-care (01) ==
LOC: ED 18:17 → AC 21:56
PROVIDERS: Admitting Provider Internal Medicine; Emergency Provider Emergency Medicine; PCP Internal Medicine; Referring Provider Emergency Medicine; Visit Provider Internal Medicine
DX: I26.09 Other pulmonary embolism with acute cor pulmonale (principal); I48.20 Chronic atrial fibrillation, unspecified; Z95.0 Presence of cardiac pacemaker; Z79.82 Long term (current) use of aspirin
CPT/HCPCS: 36415; 71045; 71275; 80053; 83605; 83880; 84484; 85025; 85379; 85610; 93005; 93306; 99233; 99284; G0378; Q9967

== ENCOUNTER 2023-01-29 13:45 | Emergency (ER) | payer OTHER, SELFPAY ==
[2023-01-26 22:36] VITALS: BMI 27.6
[2023-01-29 14:10] VITALS: BP 171/80; PULSE 60; RESP 18; TEMP 36.1; O2SAT 97; BMI 27.8
[2023-01-29 15:02] LABS: Appearance Urine UA CLOUDY; Bilirubin Urine UA NEGATIVE (NEGATIVE); Color Urine UA BROWN; Glucose Urine UA NEGATIVE (Negative); Ketones Urine UA NEGATIVE (NEGATIVE); Leukocyte Esterase Urine UA TRACE (NEGATIVE); Nitrite Urine UA NEGATIVE (Negative); Occult Blood Urine UA 3+ (Negative); Protein Urine UA 1+ (Negative); Specific Gravity Urine UA 1.025 (1.000-1.035); pH Urine UA 5.5 (4.5-8.0)
[2023-01-29 15:15] LABS: RBC Urine >100/HPF (0-5/HPF); WBC Urine 1-5/HPF (0-5/HPF)
[2023-01-29 15:16] LABS: Bacteria Urine Many (>30); Culture Indicated Urine Specimen Cultured; Squamous Epithelial Cell Urine None Seen (0-5/HPF)
--- NOTE | 2023-01-29 16:04 | ED_ITS ---
HPI - Male Genitourinary <Michelle Todd PA-C - Last Filed: 01/29/23 19:51> General Chief complaint: Urogenital-Male Stated complaint: reaction to Eliquis/ Urine is brown Time Seen by Provider: 01/29/23 14:44 Source: patient Mode of arrival: Family Vehicle History of Present Illness HPI Narrative: 82-year-old male with history of atrial fibrillation, pulmonary embolism recently started on apixaban on Thursday of this week presents with concern for [place] colored urine. Patient denies any other symptoms including abdominal pain, blood clots in his urine, pelvic pain back pain dizziness lightheadedness, shortness of breath chest pain or other. He states he has been returning to his normal activity, went to the gym yesterday and is back to about 75% of his usual after being hospitalized recently. Related Data Home Medications Medication Instructions Recorded Confirmed aspirin 81 mg chewable tablet 81 mg PO DAILY 01/27/23 01/27/23 dronedarone 400 mg tablet (Multaq) 400 mg PO BID 01/27/23 01/27/23 Previous Rx's Medication Instructions Recorded apixaban 5 mg (74 tabs) tablets in See Rx Instructions PO .COMPLEX 01/27/23 a dose pack #74 ea Allergies Allergy/AdvReac Type Severity Reaction Status Date / Time vaccine adjuvant system, Allergy Swelling Verified 01/29/23 14:15 AS01B liposomal of [From Shingrix (PF)] extremity varicella-zoster virus Allergy Swelling Verified 01/29/23 14:15 glycoprotein E, recombinant of [From Shingrix (PF)] extremity Sulfa (Sulfonamide AdvReac Hives Verified 01/29/23 14:15 Antibiotics) Review of Systems <Michelle Todd PA-C - Last Filed: 01/29/23 19:51> Review of Systems Narrative: See HPI Patient History <Michelle Todd PA-C - Last Filed: 01/29/23 19:51> Social History household members: spouse Smoking Status: Former smoker alcohol intake: current Smoking Status: Former smoker alcohol intake frequency: a few times a month Substance Use Type: does not use Exam <Michelle Todd PA-C - Last Filed: 01/29/23 19:51> Narrative Exam Narrative: GENERAL: 82 year old patient appears stated age. Well-developed patient, in mild distress. HEAD: Atraumatic. Normocephalic. EYES: Pupils equal round and reactive. Extraocular motions intact. No scleral icterus. No injection or drainage. ENT: Nose without bleeding, purulent drainage. Airway patent. NECK: Trachea midline. Non tender CARDIOVASCULAR: Regular rate and rhythm without murmurs, gallops, or rubs. RESPIRATORY: Clear to auscultation. Breath sounds equal bilaterally. No wheezes, rales, or rhonchi. GASTROINTESTINAL: Abdomen soft, non-tender, nondistended; there is a midline periumbilical hernia present soft nontender, no CVA tenderness. EXTREMITIES: No edema or joint tenderness, moving all extremities normal gait. BACK: Nontender without deformity or crepitance. No flank tenderness. NEURO: AOx3. SKIN: No rash or erythema of visible areas Initial Vital Signs Initial Vital Signs: Vital Signs Temperature 97.0 F L 01/29/23 14:10 Pulse Rate 60 01/29/23 14:10 Respiratory Rate 18 01/29/23 14:10 Blood Pressure 171/80 H 01/29/23 14:10 Pulse Oximetry 97 01/29/23 14:10 Oxygen Delivery Method Room Air 01/29/23 14:10 <Giovanni Harris MD - Last Filed: 02/09/23 07:26> Initial Vital Signs Initial Vital Signs: Vital Signs Temperature 97.0 F L 01/29/23 14:10 Pulse Rate 60 01/29/23 14:10 Respiratory Rate 18 01/29/23 14:10 Blood Pressure 171/80 H 01/29/23 14:10 Pulse Oximetry 97 01/29/23 14:10 Oxygen Delivery Method Room Air 01/29/23 14:10 Course <Michelle Todd PA-C - Last Filed: 01/29/23 19:51> Course Course Narrative: Patient expressed frustration to the RN that he had been here as long as he has. I spoke with the patient and discussed the situation that lab is coming to do the blood draw momentarily which we had already planned on and discussed earlier. Patient states he prefers to leave after the blood draw and would like to be called with the results. I advised him that this is not our practice as if there are concerning findings from the blood draw and we recommend any additional evaluation or care based on these results it is not appropriate for us to let him be discharged from the emergency department prior to these results returning. Did advise him certainly his choice if he desires to leave the ER before the results returned but will sign him Against Medical Advice. Also did advise him if concerning results do come back we will of course give him a call regarding this. Patient plans to go Against Medical Advice and Against Medical Advice paperwork is completed by provider. 1601. Patient did soon changes mind and elected to wait for lab results. 1630 Orders Ordered: Discontinued Medications Ondansetron HCl (Ondansetron 4 Mg Odt) 4 mg SL NOW PRN PRN Reason: Nausea And Vomiting Ondansetron HCl (Ondansetron 4 Mg/2 Ml Inj) 4 mg IV NOW PRN PRN Reason: Nausea And Vomiting Vital Signs Vital signs: Vital Signs - 8 hr 01/29/23 14:10 01/29/23 17:31 Temperature 97.0 F L Pulse Rate 60 66 Respiratory Rate 18 16 Blood Pressure 171/80 H 150/78 H Pulse Oximetry 97 99 Oxygen Delivery Method Room Air Room Air <Giovanni Harris MD - Last Filed: 02/09/23 07:26> Orders Ordered: Discontinued Medications Ondansetron HCl (Ondansetron 4 Mg Odt) 4 mg SL NOW PRN PRN Reason: Nausea And Vomiting Ondansetron HCl (Ondansetron 4 Mg/2 Ml Inj) 4 mg IV NOW PRN PRN Reason: Nausea And Vomiting Vital Signs Vital signs: Vital Signs - 8 hr 01/29/23 14:10 01/29/23 17:31 Temperature 97.0 F L Pulse Rate 60 66 Respiratory Rate 18 16 Blood Pressure 171/80 H 150/78 H Pulse Oximetry 97 99 Oxygen Delivery Method Room Air Room Air MDM - Male Genitourinary <Michelle Todd PA-C - Last Filed: 01/29/23 19:51> Differential Diagnosis Differential diagnosis: Likely urinary tract infection and other (Medication reaction, less likely rhabdomyolysis) Lab Data Attestation: I reviewed the patient's lab results. 01/29/23 16:10 01/29/23 16:10 Labs: Lab Results 11/09/23 11/09/23 Range/Units 14:58 16:10 WBC 5.6 (4.5-11.0) X10^3/uL RBC 4.74 (4.5-5.9) X10^6/uL Hgb 14.6 (13.5-17.5) g/dL Hct 42.5 (41-53) % MCV 89.5 (80-100) fL MCH 30.7 (26-34) PG MCHC 34.3 (30-36) % RDW 13.5 (11.6-14.8) % Plt Count 161 (150-400) X10^3/uL Neut % (Auto) 74.4 (50-75) % Lymph % (Auto) 13.1 L (25-40) % Runnels % (Auto) 8.8 (3-14) % Eos % (Auto) 2.7 (2-4) % Baso % (Auto) 1.0 (0-2) % Neut # (Auto) 4100 (7790-2310) /uL Lymph # (Auto) 700 L (2909-5557) /uL Runnels # (Auto) 500 (0-900) /uL Eos # (Auto) 200 (0-450) /uL Baso # (Auto) 100 (0-100) /uL Sodium 137 (137-145) mmol/L Potassium 4.2 (3.4-5.1) mmol/L Chloride 104 (98-107) mmol/L Carbon Dioxide 24 (22-32) mmol/L BUN 27 H (9-20) mg/dL Creatinine 1.35 H (0.66-1.25) mg/dL Estimated GFR 53 L (>60) mL/min BUN/Creatinine Ratio 20.0 (6-22) Glucose 91 (80-110) mg/dL Calcium 9.3 (8.4-10.2) mg/dL Total Bilirubin 0.8 (0.2-1.3) mg/dL AST 39 (17-59) IU/L ALT 27 (<50) IU/L Alkaline Phosphatase 67 (38-126) U/L Total Creatine Kinase 116 (55-170) U/L Total Protein 7.2 (6.3-8.2) g/dL Albumin 4.0 (3.5-5.0) g/dL Globulin 3.2 (1.7-4.1) g/dL Albumin/Globulin Ratio 1.3 (1.0-2.8) Urine Color Brown Urine Appearance Cloudy Urine pH 5.5 (4.5-8.0) Ur Specific Damar 1.025 (1.000-1.035) Urine Protein 1+ H (Negative) Urine Glucose (UA) Negative (Negative) g/dL Urine Ketones Negative (NEGATIVE) Urine Occult Blood 3+ H (Negative) Urine Nitrate Negative (Negative) Urine Bilirubin Negative (NEGATIVE) Urine Urobilinogen 1.0 (0.2) E.U./dL Ur Leukocyte Esterase Trace H (NEGATIVE) Urine RBC >100/hpf H (0-5/HPF) Urine WBC 1-5/hpf (0-5/HPF) Ur Squamous Epith Cells None seen (0-5/HPF) Urine Bacteria Many (>30) H (None) Ur Culture Indicated? Specimen cultured MDM Narrative Medical decision making narrative: This is an 82-year-old male with history of pulmonary embolisms, atrial fibrillation who was recently hospitalized for PE and recently started on apixaban on Thursday of this week who presented to the ER with concern for [place] colored urine. His symptoms are not consistent with UTI however urine dip is obtained and did discuss possibly doing a bladder scan however patient has no urinary retention symptoms for difficulty with urination and has not had any blood clots passing. After discussion with the patient and his we do also obtain some basic labs to include CBC CMP and CK to further evaluate potential causes although given he has no other symptoms most likely this is simply a side effect of starting the new medication he is currently on a higher dose that will be reduced soon, and hopefully the symptoms will improve. His labs do not suggest acute blood loss, and his CK is unremarkable. Patient is discharged with advice to follow up closely with his PCP monitor for new or worsening symptoms seek re-evaluation if they develop. Return precautions provided, follow-up plan discussed, all questions answered. <Giovanni Harris MD - Last Filed: 02/09/23 07:26> Lab Data Labs: Lab Results 01/29/23 01/29/23 Range/Units 14:58 16:10 WBC 5.6 (4.5-11.0) X10^3/uL RBC 4.74 (4.5-5.9) X10^6/uL Hgb 14.6 (13.5-17.5) g/dL Hct 42.5 (41-53) % MCV 89.5 (80-100) fL MCH 30.7 (26-34) PG MCHC 34.3 (30-36) % RDW 13.5 (11.6-14.8) % Plt Count 161 (150-400) X10^3/uL Neut % (Auto) 74.4 (50-75) % Lymph % (Auto) 13.1 L (25-40) % Runnels % (Auto) 8.8 (3-14) % Eos % (Auto) 2.7 (2-4) % Baso % (Auto) 1.0 (0-2) % Neut # (Auto) 4100 (9499-9853) /uL Lymph # (Auto) 700 L (0340-9086) /uL Runnels # (Auto) 500 (0-900) /uL Eos # (Auto) 200 (0-450) /uL Baso # (Auto) 100 (0-100) /uL Sodium 137 (137-145) mmol/L Potassium 4.2 (3.4-5.1) mmol/L Chloride 104 (98-107) mmol/L Carbon Dioxide 24 (22-32) mmol/L BUN 27 H (9-20) mg/dL Creatinine 1.35 H (0.66-1.25) mg/dL Estimated GFR 53 L (>60) mL/min BUN/Creatinine Ratio 20.0 (6-22) Glucose 91 (80-110) mg/dL Calcium 9.3 (8.4-10.2) mg/dL Total Bilirubin 0.8 (0.2-1.3) mg/dL AST 39 (17-59) IU/L ALT 27 (<50) IU/L Alkaline Phosphatase 67 (38-126) U/L Total Creatine Kinase 116 (55-170) U/L Total Protein 7.2 (6.3-8.2) g/dL Albumin 4.0 (3.5-5.0) g/dL Globulin 3.2 (1.7-4.1) g/dL Albumin/Globulin Ratio 1.3 (1.0-2.8) Urine Color Brown Urine Appearance Cloudy Urine pH 5.5 (4.5-8.0) Ur Specific Damar 1.025 (1.000-1.035) Urine Protein 1+ H (Negative) Urine Glucose (UA) Negative (Negative) g/dL Urine Ketones Negative (NEGATIVE) Urine Occult Blood 3+ H (Negative) Urine Nitrate Negative (Negative) Urine Bilirubin Negative (NEGATIVE) Urine Urobilinogen 1.0 (0.2) E.U./dL Ur Leukocyte Esterase Trace H (NEGATIVE) Urine RBC >100/hpf H (0-5/HPF) Urine WBC 1-5/hpf (0-5/HPF) Ur Squamous Epith Cells None seen (0-5/HPF) Urine Bacteria Many (>30) H (None) Ur Culture Indicated? Specimen cultured Discharge Plan Departure Patient Disposition: Home Clinical Impression: Hematuria Qualifiers: Hematuria type: unspecified type Qualified Code(s): R31.9 - Hematuria, unspecified Instructions: DI for Hematuria Activity Restrictions/Additional Instructions: You have been diagnosed with [hematuria] *What to do: *Please continue to take your regular medications as directed. [ ] New medication prescriptions sent to your pharmacy: [ ] [ ] New medication written as a paper prescription [ ] No new medications given *Please follow up with your primary care provider in 2-3 days, call for an appointment. Let them know you were seen in the Emergency Department and that we ask that you be seen in follow up. We will electronically transmit a record of today's note if your PCP is in our system. I am sorry for your very long stay in the emergency department today. Thankfully your labs did come back looking okay, we checked some labs to evaluate your liver function as well as your basic blood counts and a lab that helps us determine if you have a lot of muscle breakdown going on which can be problematic. All of these came back looking okay. However of course your urine was notable for the presence of blood/darker color which is why he came in today. I suspect this is simply a reaction to her new medication and is a fairly common side effect. Should not be a problem unless you start having red blood or passing any clots or having any difficulty with urination. Of course if you develop symptoms such as dizziness or lightheadedness or have other concerns you should seek re-evaluation. I suspect the symptoms may improve somewhat when you titrate down on this medication as he just started it and you are on a slightly higher dose currently. I do recommend he follow up with your primary care provider on this. *If you do not have a primary care provider please contact the [facility] Resource line at [phone]. They will ask some questions about your medical history and help get you set up with a doctor in the community. *Return to Emergency Department if you should have any new, worsening or concerning symptoms, such as [fever greater than 101 F, shaking chills, worsening pain, persistent vomiting or other bothersome symptoms] Prescriptions: No Action aspirin 81 mg Tablet,Chewable 81 mg PO DAILY Multaq 400 mg Tablet 400 mg PO BID Rx Instructions: must administer with a meal/food apixaban 5 mg (74 tabs) tablets,dose pack See Rx Instructions .ROUTE .COMPLEX Qty: 74 0RF Rx Instructions: 10 mg BID for 7 days, followed by 5 mg BID for 23 days Referrals: Thanh Duarte MD [Primary Care Provider] - Stand Alone Forms: Patient Portal/API ED Sign-out <Giovanni Harris MD - Last Filed: 02/09/23 07:26> [facility] Attestation: I was immediately available in the department for consultation. ?This documentation has been reviewed and I agree with assessment and plan. Supervised by Giovanni Harris MD
[2023-01-29 16:28] LABS: Add Manual Diff / Slide Review NO; Basophils Absolute Auto 100 /uL (0-100); Eosinophils Absolute Auto 200 /uL (0-450); Eosinophils Percent Auto 2.7 % (2-4); Hematocrit 42.5 % (41-53); Hemoglobin 14.6 g/dL (13.5-17.5); Lymphocytes Absolute Auto 700 /uL (1100-4500); Lymphocytes Percent Auto 13.1 % (25-40); Mean Corpuscular HGB Conc 34.3 % (30-36); Mean Corpuscular Hemoglobin 30.7 PG (26-34); Mean Corpuscular Volume 89.5 fL (80-100); Monocytes Absolute Auto 500 /uL (0-900); Monocytes Percent Auto 8.8 % (3-14); Neutrophils Absolute Auto 4100 /uL (1500-7000); Neutrophils Percent Auto 74.4 % (50-75); Platelet Count 161 X10^3/uL (150-400); Red Blood Cell Count 4.74 X10^6/uL (4.5-5.9); Red Cell Distribution Width 13.5 % (11.6-14.8); White Blood Cell Count 5.6 X10^3/uL (4.5-11.0)
[2023-01-29 16:39] LABS: Alanine Aminotransferase 27 IU/L (<50); Albumin Globulin Ratio 1.3 (1.0-2.8); Alkaline Phosphatase 67 U/L (38-126); Aspartate Aminotransferase 39 IU/L (17-59); Bilirubin Total 0.8 mg/dL (0.2-1.3); Blood Urea Nitrogen 27 mg/dL (9-20); Calcium 9.3 mg/dL (8.4-10.2); Carbon Dioxide 24 mmol/L (22-32); Chloride 104 mmol/L (98-107); Estimated Glomerular Filt Rate 53 mL/min (>60); Globulin 3.2 g/dL (1.7-4.1); Glucose 91 mg/dL (80-110); HEMOLYSIS 15 (0-50); Potassium 4.2 mmol/L (3.4-5.1); Sodium 137 mmol/L (137-145); Total Protein 7.2 g/dL (6.3-8.2)
[2023-01-29 17:19] LABS: Creatine Kinase 116 U/L (55-170)
[2023-01-29 17:31] VITALS: BP 150/78; PULSE 66; RESP 16; O2SAT 99
== END 2023-01-29 18:00 | disposition home or self-care (01) ==
PROVIDERS: Emergency Provider Student in an Organized Health Care Education/Training Program; PCP Internal Medicine
DX: R31.9 Hematuria, unspecified (principal)
CPT/HCPCS: 36415; 80053; 81001; 82550; 85025; 87086; 99283

== ENCOUNTER 2024-02-29 13:44 | Day surgery (SDC) | payer OTHER, SELFPAY ==
[2023-01-26 22:36] VITALS: BMI 27.6
[2024-02-29 15:22] VITALS: BP 175/85; PULSE 62; RESP 16; TEMP 36.6; O2SAT 97
--- NOTE | 2024-02-29 16:17 | PM.HP.1 ---
History of Present Illness History of Present Illness Date Patient Seen: 02/29/24 Time Patient Seen: 16:18 Chief complaint: Screening Colonoscopy Narrative: 83-year-old male with a remote history of colon polyps returning for colon cancer screening. He has been off his Eliquis for 2 days. I reviewed my office note. No significant changes. COUNT INCLUDES THE [facility] Medical History Pulmonary embolism with acute cor pulmonale Social History household members: spouse Smoking Status: Former smoker alcohol intake: current Meds Home Medications and Allergies Home Medications Medication Instructions Recorded Confirmed Type apixaban 5 mg (74 tabs) tablets in See Rx Instructions PO .COMPLEX 01/27/23 02/29/24 Rx a dose pack #74 ea dronedarone 400 mg tablet (Multaq) 400 mg PO BID 01/27/23 02/29/24 History Allergies Allergy/AdvReac Type Severity Reaction Status Date / Time vaccine adjuvant system, Allergy Swelling Verified 02/29/24 15:12 AS01B liposomal of [From Shingrix (PF)] extremity varicella-zoster virus Allergy Swelling Verified 02/29/24 15:12 glycoprotein E, recombinant of [From Shingrix (PF)] extremity Sulfa (Sulfonamide AdvReac Hives Verified 02/29/24 15:12 Antibiotics) Review of Systems Review of Systems ROS: Yes All systems reviewed with the patient and are negative except as otherwise documented Exam Vital Signs (past 8 hours): - 02/29/24 15:22 Temperature 97.9 F Pulse Rate 62 Respiratory Rate 16 Blood Pressure 175/85 H Pulse Oximetry 97 Oxygen Delivery Method Room Air Oxygen Delivery Method Room Air Const General: cooperative HENMT Head: normal to inspection Eyes General: appearance normal, both eyes and all related structures Neck Neck: normal visual inspection Chest Chest: normal inspection of the chest Resp Effort & Inspection: normal respiratory effort Cardio Rate: regular rate GI Inspection: normal to inspection Skin General: no rashes or lesions noted Neuro General: patient alert and patient awake Extrem General: normal to inspection and edema (Mild bilaterally. Patient indicates this is better than usual.) Psych Appearance: grossly normal Assessment & Plan Assessment & Plan narrative: 83-year-old with a remote history of unknown histology colon polyps. Updated colonoscopy for screening purposes is pursued today. Time-Based Coding :: [TOTAL MINUTES] spent with patient and on the chart (including review of chart, obtaining history, exam, reviewing outside data, placing orders, documenting exam and treatment plan, and counseling patient) on [DATE].
--- NOTE | 2024-02-29 16:19 | PM.PREOP ---
Pre-operative Note Interval Note History & Physical reviewed/Exam performed by Physician: Yes Changes to H&P: No ASA Class (for procedural sedation): II
[2024-02-29 17:52] VITALS: BP 111/59; PULSE 60; RESP 10; TEMP 36.3; O2SAT 96
--- NOTE | 2024-02-29 17:52 | P.OP.COLON_ITS ---
Operative Date/Time/Diagnoses Date of procedure: 02/29/24 Time of procedure: 17:52 Pre-op diagnosis: Colon cancer screening Post-op diagnosis: same Procedure & Clinicians Study performed: Colonoscopy Same procedure as scheduled: Yes Indications: Colon cancer screening Surgeon: Cayden Sharp Procedure Notes SCOAP/Timeout: Done Procedure in detail: After the risks and benefits were explained, written and verbal informed consent was obtained. The patient was brought into the procedure room and placed into the left lateral decubitus position. Please see anesthesia notes for sedation details. Digital rectal examination was accomplished. The scope was introduced into the patient and advanced under direct visualization to the cecum as identified by the appendiceal orifice and ileocecal valve. The scope was slowly withdrawn to carefully examine the mucosa for any defects or lesions. Comprehensive imaging was accomplished throughout the rectum including the dentate line. The colon was decompressed, the scope was then removed from the patient who tolerated the procedure well. Adult colonoscope Bowel prep adequate Scope withdrawal time: Approximately 15 minutes Sedation minutes: 34 Specimen(s): none sent Complications: none Impression: The patient had rather extensive diverticulosis all throughout the left colon with diverticula extending even into the ascending region. The patient had a somewhat redundant colon and navigation was challenging. In order to fully intubate the cecum the patient had to be shifted into the supine position and abdominal pressure was required. We intermittently use the stiffening shayy as well. There was some residual stool debris left over from the prep but with heavy irrigation and suction I was able to achieve an acceptable exam. No significant polyps or mass lesions appreciated throughout. On initial inspection and examination the patient had nonbleeding nonthrombosed grade 3 circumferential hemorrhoids. Endoscopic diagnosis 1. Grade 3 hemorrhoids 2. Diverticulosis 3. Redundant colon Post-procedure Plan for aftercare: 1. Okay to resume Eliquis this evening. 2. Repeat colonoscopy only as needed in the years to come for concerning clinical changes. 3. Warm Epsom salt baths can help with reducing hemorrhoidal engorgement. 4. Yghj-xav-czmxiud dietary fiber supplementation for soft easy evacuations may also help with the hem orrhoids. Disposition: PACU
[2024-02-29 17:57] VITALS: BP 106/58; PULSE 61; RESP 10; O2SAT 97
[2024-02-29 18:03] VITALS: BP 144/65; PULSE 64; RESP 13; TEMP 36.4; O2SAT 97
== END 2024-02-29 18:54 | disposition home or self-care (01) ==
PROVIDERS: PCP Internal Medicine; Referring Provider Internal Medicine Gastroenterology; Visit Provider Internal Medicine Gastroenterology
PROC: 0DJD8ZZ Inspection of Lower Intestinal Tract, Via Natural or Artificial Opening Endoscopic (ICD-10-PCS; CPT 45378; principal; 2024-02-29 15:00)
DX: Z12.11 Encounter for screening for malignant neoplasm of colon (principal); Z86.711 Personal history of pulmonary embolism; Z79.01 Long term (current) use of anticoagulants; Z87.891 Personal history of nicotine dependence; K64.2 Third degree hemorrhoids; K57.30 Diverticulosis of large intestine without perforation or abscess without bleeding
CPT/HCPCS: 45378; J2704

== ENCOUNTER 2024-10-25 18:38 | Emergency (ER) | payer OTHER, SELFPAY ==
[2023-01-26 22:36] VITALS: BMI 27.6
[2024-10-25] VITALS (7 sets, daily range): BP systolic 143–188; BP diastolic 70–81; PULSE 60–71; RESP 18–21; TEMP 36.4; O2SAT 92–98
--- NOTE | 2024-10-25 19:08 | EKG_ITS ---
[address] [address] Test Date: 2024-10-25 Pat Name: Marcus Carrillo Department: [facility] Room: Gender: Male Reel Tender: PRIYANKA : 1940 Requested By: Order Number: [id number] Reading MD: Jeffery Hodgson Measurements Intervals [place] Rate: 60 P: -2 IA: 316 QRS: -59 QRSD: 106 T: 3 QT: 436 QTc: 436 Interpretive Statements Atrial-paced rhythm with prolonged AV conduction Left anterior fascicular block Septal infarct , age undetermined Electronically Signed On 10-29-2024 9:19:28 PDT by Jeffery Hodgson
--- NOTE | 2024-10-25 19:08 | DI.RAD.S_ITS ---
PROCEDURE: XR CHEST 1V INDICATIONS: Possible stroke TECHNIQUE: One view of the chest was acquired. COMPARISON: [facility], , XR CHEST 1V, 01/26/2023, 18:08. FINDINGS: Surgical changes and devices: Dual lead left-sided transvenous pacemaker. Lungs and pleura: Lungs are clear. No pleural effusions or pneumothorax. Mediastinum: Mediastinal contours appear normal. Heart size is normal. Bones and chest wall: No suspicious bony lesions. Overlying soft tissues appear unremarkable. IMPRESSION: No acute cardiopulmonary abnormality is seen. Dictated by: Sofía Nam M.D. on 10/25/2024 at 20:17 Approved by: Sofía Nam M.D. on 10/25/2024 at 20:17
--- NOTE | 2024-10-25 19:08 | DI.CT.S_ITS ---
PROCEDURE: CT ANGIO HEAD AND NECK INDICATIONS: dizzy off balance, TECHNIQUE: After the administration of intravenous contrast, 1 mm thick sections acquired from the aortic arch through the [place] of [place]. 3-dimensional iqvejxt-eztqypuiw-rroqwehqbb (MIP) and/or volume rendering reformats were acquired of the central intracranial vasculature and neck separately. For radiation dose reduction, the following was used: automated exposure control, adjustment of mA and/or kV according to patient size. COMPARISON: None. FINDINGS: Image quality: Diagnostic. Cerebral CT Angiogram: Internal carotid arteries: No acute findings. Intracranial ICA are patent with no significant stenosis. No occlusion. No aneurysm. Anterior cerebral arteries: Unremarkable. No significant stenosis. No occlusion. No aneurysm. Middle cerebral arteries: Unremarkable. No significant stenosis. No occlusion. No aneurysm. Posterior cerebral arteries: Unremarkable. No significant stenosis. No occlusion. No aneurysm. Basilar artery: Unremarkable. No significant stenosis. No occlusion. No aneurysm. Vertebral arteries: Unremarkable as visualized. Dural venous sinuses: Unremarkable given phase of enhancement. Other: Arterial phase appearance of the brain parenchyma is unremarkable. Neck CT Angiogram: Internal carotid arteries: Unremarkable. No significant stenosis. No dissection or occlusion. Common carotid arteries: Unremarkable. No significant stenosis. No dissection or occlusion. External carotid arteries: Unremarkable. No occlusion. Vertebral arteries: Unremarkable. No significant stenosis. No dissection or occlusion. Aortic Arch and Mediastinum: Partially visualized aortic arch unremarkable without evidence of aneurysm. Origins of the great vessels unremarkable. Other: Degenerative changes throughout the cervical spine. With near complete disc height loss at C7-T1. Arterial phase soft tissues of the neck and chest are otherwise unremarkable. IMPRESSION: No significant intracranial arterial abnormality is seen. No significant abnormality is seen within the arteries of the neck. Any quantitative measurements of stenosis were performed using NASCET criteria. Dictated by: Sofía Nam M.D. on 10/25/2024 at 20:13 Approved by: Sofía Nam M.D. on 10/25/2024 at 20:17
--- NOTE | 2024-10-25 19:08 | DI.CT.S_ITS ---
PROCEDURE: CT STROKE INDICATIONS: Positive BE-FAST, Stroke symptoms TECHNIQUE: Noncontrast 4.5 mm thick angled axial sections acquired from the foramen magnum to the vertex, with coronal reformats. For radiation dose reduction, the following was used: automated exposure control, adjustment of mA and/or kV according to patient size. COMPARISON: None. FINDINGS: Image quality: Diagnostic. CSF spaces: Basal cisterns are patent. No extra-axial fluid collections. The ventricles are symmetric in size and shape. Brain: No intracranial bleeds or mass effect. There is cerebral volume loss, with resultant ventricular and sulcal prominence. There are periventricular and deep white matter chronic small vessel ischemic changes. There is intracranial internal carotid artery atherosclerosis. Skull and face: Calvarium and visualized facial bones appear intact, without suspicious lesions. Sinuses: Visualized sinuses and mastoids are clear. IMPRESSION: No CT evidence of acute intracranial process. Findings conveyed to the Dr. Rincon in the ED at 19:30 on 10/25/24. This study fulfills neurological imaging criteria for inclusion or exclusion of acute stroke therapies based on available published neurological guidelines. Dictated by: Sofía Nam M.D. on 10/25/2024 at 19:26 Approved by: Sofía Nam M.D. on 10/25/2024 at 19:31
[2024-10-25 19:24] LABS: INR 1.3 (0.9-1.3); Prothrombin Time 14.9 SECONDS (9.4-12.5)
[2024-10-25 19:26] LABS: Add Manual Diff / Slide Review NO; Hematocrit 40.6 % (41-53); Hemoglobin 13.9 g/dL (13.5-17.5); Lymphocytes Absolute Auto 400 /uL (1100-4500); Mean Corpuscular HGB Conc 34.2 % (30-36); Mean Corpuscular Hemoglobin 30.2 PG (26-34); Mean Corpuscular Volume 88.2 fL (80-100); Platelet Count 187 X10^3/uL (150-400)
[2024-10-25 19:27] LABS: PTT Partial Thromboplastin Tim 31 SECONDS (25.1-36.5)
[2024-10-25 19:29] LABS: Alanine Aminotransferase 23 IU/L (<50); Albumin 4.1 g/dL (3.5-5.0); Albumin Globulin Ratio 1.4 (1.0-2.8); Alkaline Phosphatase 68 U/L (38-126); Blood Urea Nitrogen 24 mg/dL (9-20); Calcium 9.3 mg/dL (8.4-10.2); Carbon Dioxide 27 mmol/L (22-32); Chloride 103 mmol/L (98-107); Creatine Kinase 105 U/L (55-170); Estimated Glomerular Filt Rate 51 mL/min (>60); Globulin 3.0 g/dL (1.7-4.1); Glucose 103 mg/dL (70-99); HEMOLYSIS < 15 (0-50); Potassium 4.8 mmol/L (3.4-5.1); Sodium 136 mmol/L (137-145); Total Protein 7.1 g/dL (6.3-8.2)
--- NOTE | 2024-10-25 19:37 | ED_ITS ---
HPI - Dizziness General Chief Complaint: Dizziness Stated Complaint: pcp sent possible stroke Time Seen by Provider: 10/25/24 19:36 Source: patient Mode of arrival: Ambulatory History of Present Illness HPI Narrative: 83-year-old right-handed male on Eliquis anticoagulation for atrial fibrillation, history of pacemaker, denies previous stroke TIA known, having episodic dizziness and vertigo spinning sensation for 3 episodes, including prior to admission that resolved at/after triage. First episode 3 hours duration lightheadedness with spinning sensation on 10/21/24 resolved without specific treatment, associated with multiple episodes nonbloody emesis, unsteadiness of gait, no fall. Again had 3 hour episode similar symptoms 10/24/2024, nausea without emesis, imbalance, no fall, resolved without specific treatment. 4 hours prior to arrival onset of the same symptoms, nausea and on bloody emesis x2, unsteadiness of gait, no fall, seemed to feel better as he was being triaged. Without specific treatment he has at his baseline, feels better. No associated palpitation or chest pain or diaphoresis with any of these event. No focal weakness to face arm or leg. No focal numbness to face arm or leg. No incontinence stool or shaking activity, no history of known seizures. No visual changes, trouble with speech or swallow. MD complaint: dizziness Related Data Home Medications ?Medication ?Instructions ?Recorded ?Confirmed dronedarone 400 mg tablet (Multaq) 400 mg PO BID 01/2702/29/24 Previous Rx's ?Medication ?Instructions ?Recorded apixaban 5 mg (74 tabs) tablets in See Rx Instructions PO .COMPLEX 01/27/23 a dose pack #74 ea Allergies Allergy/AdvReac Type Severity Reaction Status Date / Time vaccine adjuvant system, Allergy Swelling Verified 10/25/24 18:56 AS01B liposomal (From of Shingrix (PF)) extremity varicella-zoster virus Allergy Swelling Verified 10/25/24 18:56 glycoprotein E, recombinant of (From Shingrix (PF)) extremity Sulfa (Sulfonamide AdvReac Hives Verified 10/25/24 18:56 Antibiotics) Patient History Medical History Pulmonary embolism with acute cor pulmonale Social History household members: spouse Smoking Status: Never smoker alcohol intake: current Smoking Status: Never smoker alcohol intake frequency: a few times a month Exam Narrative Exam Narrative: GENERAL: Well-developed patient, in mild distress. HEAD: Atraumatic. Normocephalic. EYES: Pupils equal round and reactive. Extraocular motions intact. No scleral icterus. No injection or drainage. ENT: Nose without bleeding, purulent drainage. Throat without erythema, tonsillar hypertrophy or exudate. Airway patent. NECK: Trachea midline. Non tender CARDIOVASCULAR: Regular rate and rhythm without murmurs, gallops, or rubs. RESPIRATORY: Clear to auscultation. Breath sounds equal bilaterally. No wheezes, rales, or rhonchi. GASTROINTESTINAL: Abdomen soft, non-tender, nondistended. Large central ventral hernia reducible, nontender. EXTREMITIES: No edema or joint tenderness. BACK: Nontender without deformity or crepitance. No flank tenderness. NEURO: AOx3. Cranial nerves intact. Motor 5/5 bilateral upper extremities and lower extremities. Ufwyhj-us-uhnt testing normal bilaterally. Sensation intact to light touch face arm or leg both sides. Moves his head nznv-[id number]-zzly up down without dizziness symptoms. SKIN: No rash or erythema of visible areas Initial Vital Signs Initial Vital Signs: Vital Signs Temperature 97.5 F L 10/25/24 18:56 Pulse Rate 60 10/25/24 18:56 Respiratory Rate 18 10/25/24 18:56 Blood Pressure 188/79 H 10/25/24 18:56 Pulse Oximetry 98 10/25/24 18:56 Oxygen Delivery Method Room Air 10/25/24 18:56 Course Orders Ordered: ED Orders 10/25/24 19:[address] angio head and neck Stat XR chest 1V Stat EKG-12 Lead Stat 10/25/24 19:09 Complete Blood Count AUTO DIFF Stat Comprehensive Metabolic Panel Stat PTT Partial Thromboplastin Tristen Stat Prothrombin Time INR Stat Troponin & CK Cardiac Panel Stat 10/25/24 20:12 Urine Microscopic Stat 10/25/24 20:30 Urine Drug Screen, Rapid Stat 10/25/24 22:07 Troponin I Stat Discontinued Medications Diphenhydramine HCl (Diphenhydramine 50 Mg/Ml Vial) 25 mg IV NOW ONE Stop: 10/25/24 19:39 Last Admin: 10/25/24 21:48 Dose: Not Given Documented By: SEBASTIAN Ondansetron HCl (Ondansetron 4 Mg/2 Ml Inj) 4 mg IV NOW PRN PRN Reason: Nausea And Vomiting Ondansetron HCl (Ondansetron 4 Mg Odt) 4 mg PO NOW PRN PRN Reason: Nausea And Vomiting Vital Signs Vital signs: Vital Signs - 8 hr 10/25/24 20:28 10/25/24 20:28 10/25/24 20:30 Pulse Rate 60 60 Respiratory Rate 19 Blood Pressure 178/81 H Pulse Oximetry 98 98 10/25/24 21:02 10/25/24 21:07 10/25/24 21:07 Pulse Rate 60 60 Respiratory Rate 19 Blood Pressure 158/70 H Pulse Oximetry 94 97 10/25/24 21:30 10/25/24 22:00 10/25/24 22:00 Pulse Rate 71 60 Respiratory Rate 21 Blood Pressure 143/70 H Pulse Oximetry 92 97 MDM - Dizziness Lab Data Attestation: I reviewed the patient's lab results. Lab results narrative: White blood cell count 8200, hemoglobin 13.9, platelets adequate. Glucose 103. BUN 24 with creatinine 1.38. Serum CO2 27 normal. Sodium 136 with potassium 4.8. Liver functions normal. Troponin negative/unmeasurable. 10/25/24 19:09 10/25/24 19:09 Labs: Lab Results 10/25/24 10/25/24 10/25/24 Range/Units 19:09 19:10 20:12 WBC 8.2 (4.5-11.0) X10^3/uL RBC 4.61 (4.5-5.9) X10^6/uL Hgb 13.9 (13.5-17.5) g/dL Hct 40.6 L (41-53) % MCV 88.2 (80-100) fL MCH 30.2 (26-34) PG MCHC 34.2 (30-36) % RDW 14.2 (11.6-14.8) % Plt Count 187 (150-400) X10^3/uL Neut % (Auto) 89.9 H (50-75) % Lymph % (Auto) 5.4 L (25-40) % [place] % (Auto) 4.1 (3-14) % Eos % (Auto) 0.2 L (2-4) % Baso % (Auto) 0.4 (0-2) % Neut # (Auto) 7400 H (5828-7898) /uL Lymph # (Auto) 400 L (0472-9443) /uL [place] # (Auto) 300 (0-900) /uL Eos # (Auto) 0 (0-450) /uL Baso # (Auto) 0 (0-100) /uL PT 14.9 H (9.4-12.5) SECONDS INR 1.3 (0.9-1.3) APTT 31 (25.1-36.5) SECONDS Sodium 136 L (137-145) mmol/L Potassium 4.8 (3.4-5.1) mmol/L Chloride 103 (98-107) mmol/L Carbon Dioxide 27 (22-32) mmol/L BUN 24 H (9-20) mg/dL Creatinine 1.38 H (0.66-1.25) mg/dL Estimated GFR 51 L (>60) mL/min BUN/Creatinine Ratio 17.4 (6-22) Glucose 103 H (70-99) mg/dL POC Whole Bld Glucose 104 H (70-99) mg/dL Calcium 9.3 (8.4-10.2) mg/dL Total Bilirubin 0.7 (0.2-1.3) mg/dL AST 37 (17-59) IU/L ALT 23 (<50) IU/L Alkaline Phosphatase 68 (38-126) U/L Total Creatine Kinase 105 (55-170) U/L Troponin I < 0.012 (0.01-0.034) ng/mL Total Protein 7.1 (6.3-8.2) g/dL Albumin 4.1 (3.5-5.0) g/dL Globulin 3.0 (1.7-4.1) g/dL Albumin/Globulin Ratio 1.4 (1.0-2.8) Urine RBC 0-1/hpf D (0-5/HPF) Urine WBC 0-1/hpf (0-5/HPF) Ur Squamous Epith Cells 0-1 /hpf (0-5/HPF) Urine Bacteria None seen (None) Ur Culture Indicated? Cult not indicated Vol Urine Centrifuged 10ml (spun) U Opiates 300ng/mL cut (Negative) Ur Oxycodone Screen (Negative) Urine Methadone Screen (Negative) Ur Barbiturates Screen (Negative) U Tricyclic Antidepress (Negative) Ur Phencyclidine Scrn (Negative) Ur Amphetamines Screen (Negative) U Methamphetamines Scrn (Negative) Ur MDMA Scrn (Ecstasy) (Negative) U Benzodiazepines Scrn (Negative) Urine Cocaine Screen (Negative) U Marijuana (THC) Screen (Negative) Urine pH (Normal) Urine Specific [place] (Normal) Ur Creatinine (Normal) 10/25/24 10/25/24 Range/Units 20:30 22:07 WBC (4.5-11.0) X10^3/uL RBC (4.5-5.9) X10^6/uL Hgb (13.5-17.5) g/dL Hct (41-53) % MCV (80-100) fL MCH (26-34) PG MCHC (30-36) % RDW (11.6-14.8) % Plt Count (150-400) X10^3/uL Neut % (Auto) (50-75) % Lymph % (Auto) (25-40) % [place] % (Auto) (3-14) % Eos % (Auto) (2-4) % Baso % (Auto) (0-2) % Neut # (Auto) (4796-1412) /uL Lymph # (Auto) (2184-1652) /uL [place] # (Auto) (0-900) /uL Eos # (Auto) (0-450) /uL Baso # (Auto) (0-100) /uL PT (9.4-12.5) SECONDS INR (0.9-1.3) APTT (25.1-36.5) SECONDS Sodium (137-145) mmol/L Potassium (3.4-5.1) mmol/L Chloride (98-107) mmol/L Carbon Dioxide (22-32) mmol/L BUN (9-20) mg/dL Creatinine (0.66-1.25) mg/dL Estimated GFR (>60) mL/min BUN/Creatinine Ratio (6-22) Glucose (70-99) mg/dL POC Whole Bld Glucose (70-99) mg/dL Calcium (8.4-10.2) mg/dL Total Bilirubin (0.2-1.3) mg/dL AST (17-59) IU/L ALT (<50) IU/L Alkaline Phosphatase (38-126) U/L Total Creatine Kinase (55-170) U/L Troponin I < 0.012 (0.01-0.034) ng/mL Total Protein (6.3-8.2) g/dL Albumin (3.5-5.0) g/dL Globulin (1.7-4.1) g/dL Albumin/Globulin Ratio (1.0-2.8) Urine RBC (0-5/HPF) Urine WBC (0-5/HPF) Ur Squamous Epith Cells (0-5/HPF) Urine Bacteria (None) Ur Culture Indicated? Vol Urine Centrifuged U Opiates 300ng/mL cut Negative (Negative) Ur Oxycodone Screen Negative (Negative) Urine Methadone Screen Negative (Negative) Ur Barbiturates Screen Negative (Negative) U Tricyclic Antidepress Negative (Negative) Ur Phencyclidine Scrn Negative (Negative) Ur Amphetamines Screen Negative (Negative) U Methamphetamines Scrn Negative (Negative) Ur MDMA Scrn (Ecstasy) Negative (Negative) U Benzodiazepines Scrn Negative (Negative) Urine Cocaine Screen Negative (Negative) U Marijuana (THC) Screen Negative (Negative) Urine pH Normal (Normal) Urine Specific [place] Normal (Normal) Ur Creatinine Normal (Normal) Urine Dip Bedside Urine Glucose Negative Bedside Urine Bilirubin - Negative Bedside Urine Ketone - Negative Urine Specific [place] 1.005 Bedside Urine Occult Blood - Negative Bedside Urine pH 6.5 Bedside Urine Protein - Negative Bedside Urine Urobilinogen - Negative Bedside Urine Nitrite - Negative Bedside Urine Leukocytes +/- [address] scan - head: Radiologist's Impression: ster virus glycoprotein E, recombinant, Sulfa (Sulfonamide Antibiotics) [place] [address] CT Scan Report Signed Patient: Marcus Carrillo MR#: [id number] : 1940 Acct:[id number] Age/Sex: 83 / M Date of Service: 10/25/24 Loc: ED Accession Number: [id number] Procedure: CT Stroke Ordering Provider: Harvey Rincon MD PROCEDURE: CT STROKE INDICATIONS: Positive BE-FAST, Stroke symptoms TECHNIQUE: Noncontrast 4.5 mm thick angled axial sections acquired from the foramen magnum to the vertex, with coronal reformats. For radiation dose reduction, the following was used: automated exposure control, adjustment of mA and/or kV according to patient size. COMPARISON: None. FINDINGS: Image quality: Diagnostic. CSF spaces: Basal cisterns are patent. No extra-axial fluid collections. The ventricles are symmetric in size and shape. Brain: No intracranial bleeds or mass effect. There is cerebral volume loss, with resultant ventricular and sulcal prominence. There are periventricular and deep white matter chronic small vessel ischemic changes. There is intracranial internal carotid artery atherosclerosis. Skull and face: Calvarium and visualized facial bones appear intact, without suspicious lesions. Sinuses: Visualized sinuses and mastoids are clear. IMPRESSION: No CT evidence of acute intracranial process. Findings conveyed to the Dr. Rincon in the ED at 19:30 on 10/25/24. This study fulfills neurological imaging criteria for inclusion or exclusion of acute stroke therapies based on available published neurological guidelines. Dictated by: Sofía Nam M.D. on 10/25/2024 at 19:26 Approved by: Sofía Nam M.D. on 10/25/2024 at 19:31 CTA - brain/neck: Radiologist's Impression: [place] [address] CT Scan Report Signed Patient: Marcus Carrilol MR#: [id number] : 1940 Acct:[id number] Age/Sex: 83 / M Date of Service: 10/25/24 Loc: ED Accession Number: [id number] Procedure: CT angio head and neck Ordering Provider: Harvey Rincon MD PROCEDURE: CT ANGIO HEAD AND NECK INDICATIONS: dizzy off balance, TECHNIQUE: After the administration of intravenous contrast, 1 mm thick sections acquired from the aortic arch through the [place]. 3-dimensional oehrgrb-hlejcdoiy-ladamwgimc (MIP) and/or volume rendering reformats were acquired of the central intracranial vasculature and neck separately. For radiation dose reduction, the following was used: automated exposure control, adjustment of mA and/or kV according to patient size. COMPARISON: None. FINDINGS: Image quality: Diagnostic. Cerebral CT Angiogram: Internal carotid arteries: No acute findings. Intracranial ICA are patent with no significant stenosis. No occlusion. No aneurysm. Anterior cerebral arteries: Unremarkable. No significant stenosis. No occlusion. No aneurysm. Middle cerebral arteries: Unremarkable. No significant stenosis. No occlusion. No aneurysm. Posterior cerebral arteries: Unremarkable. No significant stenosis. No occlusion. No aneurysm. Basilar artery: Unremarkable. No significant stenosis. No occlusion. No aneurysm. Vertebral arteries: Unremarkable as visualized. Dural venous sinuses: Unremarkable given phase of enhancement. Other: Arterial phase appearance of the brain parenchyma is unremarkable. Neck CT Angiogram: Internal carotid arteries: Unremarkable. No significant stenosis. No dissection or occlusion. Common carotid arteries: Unremarkable. No significant stenosis. No dissection or occlusion. External carotid arteries: Unremarkable. No occlusion. Vertebral arteries: Unremarkable. No significant stenosis. No dissection or occlusion. Aortic Arch and Mediastinum: Partially visualized aortic arch unremarkable without evidence of aneurysm. Origins of the great vessels unremarkable. Other: Degenerative changes throughout the cervical spine. With near complete disc height loss at C7-T1. Arterial phase soft tissues of the neck and chest are otherwise unremarkable. IMPRESSION: No significant intracranial arterial abnormality is seen. No significant abnormality is seen within the arteries of the neck. Any quantitative measurements of stenosis were performed using NASCET criteria. Dictated by: Sofía Nam M.D. on 10/25/2024 at 20:13 Approved by: Sofía Nam M.D. on 10/25/2024 at 20:17 Chest x-ray: Radiologist's Impression: [address] [address] XRay Report Signed Patient: Marcus Carrillo MR#: [id number] : 1940 Acct:[id number] Age/Sex: 83 / M Date of Service: 10/25/24 Loc: ED Accession Number: [id number] Procedure: XR chest 1V Ordering Provider: Harvey Rincon MD PROCEDURE: XR CHEST 1V INDICATIONS: Possible stroke TECHNIQUE: One view of the chest was acquired. COMPARISON: [facility], , XR CHEST 1V, 01/26/2023, 18:08. FINDINGS: Surgical changes and devices: Dual lead left-sided transvenous pacemaker. Lungs and pleura: Lungs are clear. No pleural effusions or pneumothorax. Mediastinum: Mediastinal contours appear normal. Heart size is normal. Bones and chest wall: No suspicious bony lesions. Overlying soft tissues appear unremarkable. IMPRESSION: No acute cardiopulmonary abnormality is seen. Dictated by: Sofía Nam M.D. on 10/25/2024 at 20:17 Approved by: Sofía Nam M.D. on 10/25/2024 at 20:17 ECG Data Attestation: I personally reviewed and interpreted this ECG as follows: Interpretation: 2019, atrial paced rhythm with prolonged AV conduction, left anterior fascicular block. Ventricular rate 60. AR 316, QRS 106, QTC 436. MDM Narrative Medical decision making narrative: 83-year-old male with history of atrial fibrillation on Eliquis chronic anticoagulation, no known prior TIA/stroke, having episodic dizziness 3-4 hours duration three days ago and yesterday,, again today, symptoms resolved shortly after arrival without specific treatment. Stroke alert was initiated at triage. CT head noncontrast, CT head and neck vessels with IV contrast. EKG, chest x- ray, labs pending. CT head noncontrast, no acute changes. See radiology report. CTA study results still pending. EKG atrial paced rhythm, ventricular rate 60. CTA no thromboses, no significant narrowing. See radiology report. Chest x-ray no acute changes. See radiology report. Lab data: POC glucose 104. White blood cell count 8200, hemoglobin 13.9, platelets adequate. Glucose 103. BUN 24 with creatinine 1.38. Serum CO2 27 normal. Sodium 136 with potassium 4.8. Liver functions normal. Troponin negative/unmeasurable. Pacemaker interrogation done, call back from [facility] lab. Verbal tech report: Dual chamber pacemaker, sick sinus syndrome indication, atrial paced, no ventricular pacing has been required, no ectopy noted, no [place]ik beats. No dysrhythmia or male functions. 2109, case discussed with /[facility] nursing intake, await call back from Neurology. 2249, case discussed with Neurology [facility] Dr. Dave. Patient could be admitted here on telemetry, if so then consider fasting lipids and hemoglobin A1c in the morning, echocardiogram, repeat head CT scan since MRI not able to be performed at this facility in the patient with pacemaker. No additional anticoagulation indicated at this time, continue on Eliquis. She discouraged the use of meclizine routinely in this setting. Alternatively in close follow up patient could have workup as an outpatient, since there is no intracranial hemorrhage and patient seems recovered, this is also a reasonable option she thought. Neurology recommendations relayed. Patient prefers to have close follow up, and further testing as an outpatient, in fact is due to see primary care provider Dr. Kapadia at [facility] tomorrow in it clinic appointment already scheduled. You can bring this records and imaging reports, to possibly make arrangements for MRI brain imaging in a facility that is able to do this for patients who have cardiac pacemakers. Discharged home per patient request. Return precautions discussed. Discharged home with family. Discharge Plan Departure Patient Disposition: Home Clinical Impression: Episodic recurrent vertigo, History of cardiac pacemaker, Chronic anticoagulation Instructions: DI for Vertigo Activity Restrictions/Additional Instructions: Episodes of vertigo dizziness with nausea and vomiting, lasting 3-4 hours, at first on 10/21/24, again 10/24/24, again today resolved without specific treatment. You are taking Eliquis chronic anticoagulation, history of atrial fibrillation. History of cardiac pacemaker. CT scan of the brain showed no acute changes. CT scan angiogram of the head in the neck vessels showed no narrowing of the vessels, and no thrombosis changes. Lab testing unremarkable. EKG showed paced rhythm. Interrogation of your pacemaker revealed no obvious cause of your episodic dizziness, atrial paced rhythm noted, no ventricular pacing, no ectopy or abnormal rhythms, no failed pacing events. Case was discussed with [facility] Neurology Dr. Dave. Could consider admission here on telemetry and repeat CT scan of the head noncontrast in the morning, as no MRI can be done here at this facility with patients who have cardiac pacemakers, although some larger tertiary medical facilities can perform such MRI studies in patients with cardiac pacemakers. She would not recommend meclizine routinely to use now. If admitted you could consider echocardiogram. She would not recommend aspirin or any additional anticoagulation measures, continue Eliquis for now. She also suggested you could have close follow up and further testing as an outpatient, to obtain MRI of the brain and a specialty center able to do so with patients who have cardiac pacemakers, and arrangement for echocardiogram in follow up as well. You elected to have close follow up arrangements, in fact are scheduled to see your regular primary care provider in [facility] tomorrow. Follow up with your regular provider, and bring this note and copies of your imaging reports. Further evaluation workup as an outpatient. Return earlier to this/nearest emergency department for any change worsening symptoms or any concerns prior. Prescriptions: No Action Multaq 400 mg Tablet 400 mg PO BID Rx Instructions: must administer with a meal/food apixaban 5 mg (74 tabs) tablets,dose pack See Rx Instructions .ROUTE .COMPLEX Qty: 74 0RF Rx Instructions: 10 mg BID for 7 days, followed by 5 mg BID for 23 days Referrals: Thanh Duarte MD [Primary Care Provider, Internal Medicine] Stand Alone Forms: Patient Portal/API
--- NOTE | 2024-10-25 19:38 | ED_ITS ---
HPI - Dizziness General Chief Complaint: Dizziness Stated Complaint: pcp sent possible stroke Time Seen by Provider: 10/25/24 19:36 Source: patient Mode of arrival: Ambulatory Related Data Home Medications ?Medication ?Instructions ?Recorded ?Confirmed dronedarone 400 mg tablet (Multaq) 400 mg PO BID 01/2702/29/24 Previous Rx's ?Medication ?Instructions ?Recorded apixaban 5 mg (74 tabs) tablets in See Rx Instructions PO .COMPLEX 01/27/23 a dose pack #74 ea Allergies Allergy/AdvReac Type Severity Reaction Status Date / Time vaccine adjuvant system, Allergy Swelling Verified 10/25/24 18:56 AS01B liposomal (From of Shingrix (PF)) extremity varicella-zoster virus Allergy Swelling Verified 10/25/24 18:56 glycoprotein E, recombinant of (From Shingrix (PF)) extremity Sulfa (Sulfonamide AdvReac Hives Verified 10/25/24 18:56 Antibiotics) Patient History Medical History Pulmonary embolism with acute cor pulmonale Social History household members: spouse Smoking Status: Never smoker alcohol intake: current Smoking Status: Never smoker alcohol intake frequency: a few times a month Exam Initial Vital Signs Initial Vital Signs: Vital Signs Temperature 97.5 F L 10/25/24 18:56 Pulse Rate 60 10/25/24 18:56 Respiratory Rate 18 10/25/24 18:56 Blood Pressure 188/79 H 10/25/24 18:56 Pulse Oximetry 98 10/25/24 18:56 Oxygen Delivery Method Room Air 10/25/24 18:56 Course Orders Ordered: ED Orders 10/25/24 19:[address] angio head and neck Stat XR chest 1V Stat Urine Drug Screen, Rapid Stat EKG-12 Lead Stat 10/25/24 19:09 Complete Blood Count AUTO DIFF Stat Comprehensive Metabolic Panel Stat PTT Partial Thromboplastin Tristen Stat Prothrombin Time INR Stat Troponin & CK Cardiac Panel Stat Ondansetron HCl (Ondansetron 4 Mg/2 Ml Inj) 4 mg IV NOW PRN PRN Reason: Nausea And Vomiting Ondansetron HCl (Ondansetron 4 Mg Odt) 4 mg PO NOW PRN PRN Reason: Nausea And Vomiting Vital Signs Vital signs: Vital Signs - 8 hr 10/25/24 18:56 Temperature 97.5 F L Pulse Rate 60 Respiratory Rate 18 Blood Pressure 188/79 H Pulse Oximetry 98 Oxygen Delivery Method Room Air MDM - Dizziness Lab Data 10/25/24 19:09 10/25/24 19:09 Labs: Lab Results 10/25/24 10/25/24 Range/Units 19:09 19:10 WBC 8.2 (4.5-11.0) X10^3/uL RBC 4.61 (4.5-5.9) X10^6/uL Hgb 13.9 (13.5-17.5) g/dL Hct 40.6 L (41-53) % MCV 88.2 (80-100) fL MCH 30.2 (26-34) PG MCHC 34.2 (30-36) % RDW 14.2 (11.6-14.8) % Plt Count 187 (150-400) X10^3/uL Neut % (Auto) 89.9 H (50-75) % Lymph % (Auto) 5.4 L (25-40) % [place] % (Auto) 4.1 (3-14) % Eos % (Auto) 0.2 L (2-4) % Baso % (Auto) 0.4 (0-2) % Neut # (Auto) 7400 H (4369-4988) /uL Lymph # (Auto) 400 L (7591-1367) /uL [place] # (Auto) 300 (0-900) /uL Eos # (Auto) 0 (0-450) /uL Baso # (Auto) 0 (0-100) /uL PT 14.9 H (9.4-12.5) SECONDS INR 1.3 (0.9-1.3) APTT 31 (25.1-36.5) SECONDS Sodium 136 L (137-145) mmol/L Potassium 4.8 (3.4-5.1) mmol/L Chloride 103 (98-107) mmol/L Carbon Dioxide 27 (22-32) mmol/L BUN 24 H (9-20) mg/dL Creatinine 1.38 H (0.66-1.25) mg/dL Estimated GFR 51 L (>60) mL/min BUN/Creatinine Ratio 17.4 (6-22) Glucose 103 H (70-99) mg/dL POC Whole Bld Glucose 104 H (70-99) mg/dL Calcium 9.3 (8.4-10.2) mg/dL Total Bilirubin 0.7 (0.2-1.3) mg/dL AST 37 (17-59) IU/L ALT 23 (<50) IU/L Alkaline Phosphatase 68 (38-126) U/L Total Creatine Kinase 105 (55-170) U/L Total Protein 7.1 (6.3-8.2) g/dL Albumin 4.1 (3.5-5.0) g/dL Globulin 3.0 (1.7-4.1) g/dL Albumin/Globulin Ratio 1.4 (1.0-2.8) Discharge Plan Departure Prescriptions: No Action Multaq 400 mg Tablet 400 mg PO BID Rx Instructions: must administer with a meal/food apixaban 5 mg (74 tabs) tablets,dose pack See Rx Instructions .ROUTE .COMPLEX Qty: 74 0RF Rx Instructions: 10 mg BID for 7 days, followed by 5 mg BID for 23 days Referrals: Thanh Duarte MD [Primary Care Provider, Internal Medicine]
[2024-10-25 19:41] LABS: Troponin I < 0.012 ng/mL (0.01-0.034)
[2024-10-25 20:43] LABS: UR Morphine/Opiate cutoff 300 Negative (Negative); Ur Specific Gravity Normal (Normal); Urine MDMA Negative (Negative); Urine Methamphetamines Negative (Negative); Urine Tetrahydrocannabinol Negative (Negative); Urine Tricyclic Antidepressant Negative (Negative)
[2024-10-25 20:47] LABS: Culture Indicated Urine Cult Not Indicated
[2024-10-25 22:46] LABS: Troponin I < 0.012 ng/mL (0.01-0.034)
== END 2024-10-25 22:35 | disposition home or self-care (01) ==
PROVIDERS: Emergency Provider Emergency Medicine; PCP Internal Medicine
DX: R42 Dizziness and giddiness (principal); Z79.01 Long term (current) use of anticoagulants; Z95.0 Presence of cardiac pacemaker; R11.0 Nausea
CPT/HCPCS: 36415; 70450; 70496; 70498; 71045; 80053; 80305; 81003; 81015; 82550; 82962; 84484; 85025; 85610; 85730; 93005; 99284; Q9967